=== PATIENT | male | born 1970 | race African-American/Black ===

== ENCOUNTER 2018-03-30 19:20 | Emergency (ER) | payer SELFPAY ==
--- NOTE | 2018-03-30 20:37 | EDPHYS ---
Physician Documentation [facility] Name: Emery Hernandez Age: 47 yrs Sex: Male : 1970 Arrival Date: 03/30/2018 Time: 19:25 Bed 30 Private MD: ED Physician Mayank Sloan HPI: 03/30 20:39 This 47 yrs old Black Male presents to ER via Ambulatory with complaints of SKIN kb IRRITATION. 20:39 The patient's rash thought to be caused by Eczema. The rash is located on the body kb diffusely. Onset: The symptoms/episode began/occurred 1.5 week(s) ago. Associated signs and symptoms: Pertinent positives: itching. Severity of symptoms: At their worst the symptoms were moderate in the emergency department the symptoms are unchanged. Treatment given at home:. The patient has experienced similar episodes in the past, chronically. The patient has not recently seen a physician. Pt states his eczema has been flaring up for a week and a half. States he normally has to get a steroid shot and a cream to get it back under control.. Historical: - Allergies: 19:57 Hydrocortisone; aj - Home Meds: 19:57 Naproxen Oral [Active]; aj - PMHx: 19:57 Back pain; eczema; aj - PSHx: 19:57 None; aj - Immunization history:: Adult Immunizations up to date. - Social history:: Smoking status: Patient uses tobacco products, smokes one-half pack cigarettes per day, Patient uses street drugs, marijuana. - Ebola Screening: : Patient negative for fever greater than or equal to 101.5 degrees Fahrenheit, and additional compatible Ebola Virus Disease symptoms Patient denies exposure to infectious person Patient denies travel to an Ebola-affected area in the 21 days before illness onset No symptoms or risks identified at this time. ROS: 20:39 Constitutional: Negative for fever, chills, and weight loss, Cardiovascular: Negative kb for chest pain, palpitations, and edema, Respiratory: Negative for shortness of breath, cough, wheezing, and pleuritic chest pain, Abdomen/GI: Negative for abdominal pain, nausea, vomiting, diarrhea, and constipation, Back: Negative for injury and pain, : Negative for injury, bleeding, discharge, and swelling, MS/Extremity: Negative for injury and deformity, Neuro: Negative for headache, weakness, numbness, tingling, and seizure. 20:39 Skin: Positive for rash, diffusely. Exam: 20:39 Constitutional: This is a well developed, well nourished patient who is awake, alert, kb and in no acute distress. Head/Face: Normocephalic, atraumatic. Neck: Trachea midline, no thyromegaly or masses palpated, and no cervical lymphadenopathy. Supple, full range of motion without nuchal rigidity, or vertebral point tenderness. No Meningismus. Chest/axilla: Normal chest wall appearance and motion. Nontender with no deformity. No lesions are appreciated. Cardiovascular: Regular rate and rhythm with a normal S1 and S2. No gallops, murmurs, or rubs. Normal PMI, no JVD. No pulse deficits. Respiratory: Lungs have equal breath sounds bilaterally, clear to auscultation and percussion. No rales, rhonchi or wheezes noted. No increased work of breathing, no retractions or nasal flaring. Abdomen/GI: Soft, non-tender, with normal bowel sounds. No distension or tympany. No guarding or rebound. No evidence of tenderness throughout. Back: No spinal tenderness. No costovertebral tenderness. Full range of motion. MS/ Extremity: Pulses equal, no cyanosis. Neurovascular intact. Full, normal range of motion. Neuro: Awake and alert, GCS 15, oriented to person, place, time, and situation. Cranial nerves II-XII grossly intact. Motor strength 5/5 in all extremities. Sensory grossly intact. Cerebellar exam normal. Normal gait. 20:39 Skin: consistent with eczema, and is diffusely located. Vital Signs: 19:57 BP 125 / 89; Pulse 75; Resp 18; Temp 99.5; Pulse Ox 98% on R/A; Weight 68.04 kg; Height aj 5 ft. 11 in. (180.34 cm); 20:42 BP 134 / 81; Pulse 78; Resp 18; Pulse Ox 100% on R/A; Pain 0/10; mg2 19:57 Body Mass Index 20.92 (68.04 kg, 180.34 cm) aj MDM: 20:30 Patient medically screened. kb 20:39 Data reviewed: vital signs, nurses notes. Data interpreted: Pulse oximetry: on room air kb is 98 %. Interpretation: normal. Counseling: I had a detailed discussion with the patient and/or guardian regarding: the historical points, exam findings, and any diagnostic results supporting the discharge/admit diagnosis, the need for outpatient follow up, a family practitioner, to return to the emergency department if symptoms worsen or persist or if there are any questions or concerns that arise at home. Administered Medications: 20:43 Drug: SOLU-Medrol 125 mg Route: IM; Site: left gluteus; la1 20:43 Follow up: Response: Medication administered at discharge. la1 Disposition: 03/30/18 20:36 Discharged to Home. Impression: Rash and other nonspecific skin eruption - eczema. - Condition is Stable. - Discharge Instructions: Eczema. - Prescriptions for Triamcinolone Acetonide 0.5 % Topical Cream - apply 1 application by TOPICAL route 2 times per day As needed; 1 tube. - Medication Reconciliation Form, Thank You Letter, Antibiotic Education, Prescription Opioid Use form. - Follow up: Emergency Department; When: As needed; Reason: Worsening of condition. Follow up: Private Physician; When: 2 - 3 days; Reason: Recheck today's complaints, Continuance of care, Re-evaluation by your physician. Addendum: 04/01/2018 08:15 Co-signature as Attending Physician, Mayank Sloan MD I agree with the assessment and w a plan of care. Signatures: Jacki Gueavra, OWEN-C COLLEGE ADMINISTRATOR-Tamia Turk RN RN aj Chico Hernandez RN RN la1 Mayank Sloan MD MD wa Sanchez Diaz RN RN mg2 Corrections: (The following items were deleted from the chart) 03/30 20:47 20:36 03/30/2018 20:36 Discharged to Home. Impression: Rash and other nonspecific skin mg2 eruption - eczema. Condition is Stable. Forms are Medication Reconciliation Form, Thank You Letter, Antibiotic Education, Prescription Opioid Use. Follow up: Emergency Department; When: As needed; Reason: Worsening of condition. Follow up: Private Physician; When: 2 - 3 days; Reason: Recheck today's complaints, Continuance of care, Re-evaluation by your physician. kb
--- NOTE | 2018-03-30 20:37 | ER ---
Nurse's Notes [facility] Name: Emery Hernandez Age: 47 yrs Sex: Male : 1970 Arrival Date: 03/30/2018 Time: 19:25 Bed 30 Private MD: Diagnosis: Rash and other nonspecific skin eruption-eczema Presentation: 03/30 19:55 Presenting complaint: Patient states: "My eczema has been flaring up for the last aj week." Rash to face and arms. Transition of care: patient was not received from another setting of care. Onset of symptoms was March 24, 2018. Risk Assessment: Do you want to hurt yourself or someone else? Patient reports no desire to harm self or others. Initial Sepsis Screen: Does the patient meet any 2 criteria? No. Patient's initial sepsis screen is negative. Does the patient have a suspected source of infection? No. Patient's initial sepsis screen is negative. Care prior to arrival: None. 19:55 Method Of Arrival: Ambulatory aj 19:55 Acuity: WANDER 5 aj Triage Assessment: 19:57 General: Appears in no apparent distress. uncomfortable, Behavior is calm, cooperative, aj appropriate for age. Pain: Denies pain. Neuro: Level of Consciousness is awake, alert, obeys commands, Oriented to person, place, time, situation, Appropriate for age. Respiratory: Airway is patent Respiratory effort is even, unlabored, Respiratory pattern is regular, symmetrical. Derm: Rash noted that is itchy, papular, on face, back, chest, abdomen, right arm, left arm, right leg and left leg Reports itching. Historical: - Allergies: 19:57 Hydrocortisone; aj - Home Meds: 19:57 Naproxen Oral [Active]; aj - PMHx: 19:57 Back pain; eczema; aj - PSHx: 19:57 None; aj - Immunization history:: Adult Immunizations up to date. - Social history:: Smoking status: Patient uses tobacco products, smokes one-half pack cigarettes per day, Patient uses street drugs, marijuana. - Ebola Screening: : Patient negative for fever greater than or equal to 101.5 degrees Fahrenheit, and additional compatible Ebola Virus Disease symptoms Patient denies exposure to infectious person Patient denies travel to an Ebola-affected area in the 21 days before illness onset No symptoms or risks identified at this time. Screenin:17 Abuse screen: Denies threats or abuse. Denies injuries from another. Nutritional mg2 screening: No deficits noted. Tuberculosis screening: No symptoms or risk factors identified. Fall Risk None identified. Assessment: 20:23 General: Appears in no apparent distress. comfortable, Behavior is calm, cooperative. mg2 Pain: Denies pain. Neuro: Level of Consciousness is awake, alert, obeys commands, Oriented to person, place, time, situation. Cardiovascular: Capillary refill < 3 seconds Patient's skin is warm and dry. Respiratory: Airway is patent Respiratory effort is even, unlabored, Respiratory pattern is regular. GI: No signs and/or symptoms were reported involving the gastrointestinal system. : No signs and/or symptoms were reported regarding the genitourinary system. EENT: No signs and/or symptoms were reported regarding the EENT system. Derm: Skin is intact, Skin is pink, warm \\T\\ dry. normal, Rash noted that is itchy, raised. Musculoskeletal: No signs and/or symptoms reported regarding the musculoskeletal system. Vital Signs: 19:57 BP 125 / 89; Pulse 75; Resp 18; Temp 99.5; Pulse Ox 98% on R/A; Weight 68.04 kg; Height aj 5 ft. 11 in. (180.34 cm); 20:42 BP 134 / 81; Pulse 78; Resp 18; Pulse Ox 100% on R/A; Pain 0/10; mg2 19:57 Body Mass Index 20.92 (68.04 kg, 180.34 cm) aj ED Course: 19:25 Patient arrived in ED. al2 19:56 Triage completed. aj 19:57 Arm band placed on left wrist. Patient placed in waiting room, Patient notified of wait aj time. 20:17 Sanchez Diaz, JAIRO is Primary Nurse. mg2 20:18 Patient has correct armband on for positive identification. mg2 20:30 Jacki Guevara FNP-C is PHCP. kb 20:30 Mayank Sloan MD is Attending Physician. kb 20:41 No provider procedures requiring assistance completed. Patient did not have IV access mg2 during this emergency room visit. Administered Medications: 20:43 Drug: SOLU-Medrol 125 mg Route: IM; Site: left gluteus; la1 20:43 Follow up: Response: Medication administered at discharge. la1 Outcome: 20:36 Discharge ordered by . kb 20:41 Discharged to home ambulatory. mg2 20:41 Condition: stable 20:41 Discharge instructions given to patient, family, Instructed on discharge instructions, follow up and referral plans. medication usage, Demonstrated understanding of instructions, follow-up care, medications, Prescriptions given X 1. 20:47 Patient left the ED. mg2 Signatures: Jacki Guevara, CUSTOMER MARKETING MANAGER-C CUSTOMER MARKETING MANAGER-Tamia Turk RN Chico Howard RN RN gail1 Shanda Valdovinos Michele RN RN mg2
[2018-03-30] MEDS ORDERED: METHYLPREDNISOLONE 125 MG INJ ONE (20:46)
== END 2018-03-30 20:47 | disposition home or self-care (01) ==
LOC: ER 19:20
DX: R21 Rash and other nonspecific skin eruption (principal); Z88.8 Allergy status to other drugs, medicaments and biological substances; F17.210 Nicotine dependence, cigarettes, uncomplicated
CPT/HCPCS: 96372; 99283; J2930

== ENCOUNTER 2018-06-13 16:49 | Emergency (ER) | payer SELFPAY ==
[2018-06-13] MEDS ORDERED: METHYLPREDNISOLONE 125 MG INJ ONE (18:53)
--- NOTE | 2018-06-13 18:53 | ER ---
Nurse's Notes [facility] Name: Emery Hernandez Age: 47 yrs Sex: Male : 1970 Arrival Date: 06/13/2018 Time: 16:53 Bed 12 Private MD: None, None Diagnosis: Rash and other nonspecific skin eruption;Acute upper respiratory infection, unspecified Presentation: 06/13 17:27 Presenting complaint: Patient states: "My eczema is acting up again. I'm having hot and aj1 cold flashes, I'm getting chills real bad. I think I'm getting a cold or the flu" Denies cough, congestion, fever, N/V/D. Transition of care: patient was not received from another setting of care. Onset of symptoms was June 13, 2018. Risk Assessment: Do you want to hurt yourself or someone else? Patient reports no desire to harm self or others. Initial Sepsis Screen: Does the patient meet any 2 criteria? No. Patient's initial sepsis screen is negative. Does the patient have a suspected source of infection? No. Patient's initial sepsis screen is negative. Care prior to arrival: None. 17:27 Method Of Arrival: Ambulatory aj1 17:27 Acuity: WANDER 4 aj1 Triage Assessment: 17:29 General: Appears in no apparent distress. comfortable, Behavior is calm, cooperative, aj1 appropriate for age. Pain:. Pain: Denies pain. Neuro: Level of Consciousness is awake, alert, obeys commands. Cardiovascular: Patient's skin is warm and dry. Respiratory: Airway is patent Respiratory effort is even, unlabored, Respiratory pattern is regular, symmetrical. Historical: - Allergies: 17:29 Hydrocortisone; aj1 - Home Meds: 17:29 None [Active]; aj1 - PMHx: 17:29 Back pain; eczema; aj1 - PSHx: 17:29 None; aj1 - Immunization history:: Flu vaccine is not up to date. - Social history:: Smoking status: Patient uses tobacco products, smokes one-half pack cigarettes per day. - Ebola Screening: : Patient denies travel to an Ebola-affected area in the 21 days before illness onset. Screenin:46 Abuse screen: Denies threats or abuse. Denies injuries from another. Nutritional ss screening: No deficits noted. Tuberculosis screening: No symptoms or risk factors identified. Never had TB. Fall Risk None identified. Assessment: 17:46 General: Appears in no apparent distress. comfortable, Behavior is calm, cooperative. ss Pain: Denies pain. Neuro: Level of Consciousness is awake, alert, obeys commands, Oriented to person, place, time, situation. Cardiovascular: Capillary refill < 3 seconds is brisk in bilateral fingers. Respiratory: Airway is patent Respiratory effort is even, unlabored. GI: No signs and/or symptoms were reported involving the gastrointestinal system. EENT: Nares are clear Oral mucosa is moist. Derm: Skin is intact, is healthy with good turgor, Skin is dry, Skin is pink, warm \\T\\ dry. normal. Musculoskeletal: Range of motion: intact in all extremities, Swelling absent. Vital Signs: 17:29 BP 114 / 79; Pulse 80; Resp 18; Temp 97.4; Pulse Ox 98% on R/A; Weight 68.04 kg (R); aj1 Height 5 ft. 11 in. (180.34 cm) (R); Pain 0/10; 17:29 Body Mass Index 20.92 (68.04 kg, 180.34 cm) aj ED Course: 16:53 Patient arrived in ED. mr 16:53 None, None is Private Physician. mr 17:29 Triage completed. aj1 17:29 Arm band placed on Patient placed in an exam room. aj1 17:38 Katie Jones, RN is Primary Nurse. ss 17:46 Patient has correct armband on for positive identification. Placed in gown. Bed in low ss position. Call light in reach. 17:46 Patient maintains SpO2 saturation greater than 95% on room air. 17:54 Karthik Rodríguez PA is PHCP. [facility] 17:54 Michael Vogt MD is Attending Physician. [facility] 18:57 No provider procedures requiring assistance completed. Patient did not have IV access ss during this emergency room visit. Administered Medications: 18:47 Drug: SOLU-Medrol 125 mg Route: IM; Site: left deltoid; 18:57 Follow up: Response: No adverse reaction ss Outcome: 18:52 Discharge ordered by . [facility] 18:57 Discharged to home ambulatory. 18:57 Condition: good 18:57 Discharge instructions given to patient, Instructed on discharge instructions, follow up and referral plans. Demonstrated understanding of instructions, follow-up care, medications, Prescriptions given X 1. 18:57 Patient left the ED. ss Signatures: Karin Faulkner, RN RN aj1 Karthik Rodríguez PA PA jmm Rivera, Mary mr Katie Jones, RN RN ss
--- NOTE | 2018-06-13 18:53 | EDPHYS ---
Physician Documentation [facility] Name: Emery Hernandez Age: 47 yrs Sex: Male : 1970 Arrival Date: 06/13/2018 Time: 16:53 Bed 12 Private MD: None, None ED Physician Michael Vogt HPI: 06/13 18:41 This 47 yrs old Black Male presents to ER via Ambulatory with complaints of Ezcema. [facility] 18:41 The patient's rash thought to be caused by Eczema. The rash is located on the body jmm diffusely. The rash can be described as eczematous. Onset: The symptoms/episode began/occurred gradually, 1 week(s) ago. This is a 47 year old male with a history of eczema that presents to the ED with eczema flare for 1 week. patient also complains of 3 days of congestion and chills. Patient denies shortness of breath, abdominal pain, vomiting. Patient states he currently has relief of cold like symptoms with OTC medications. . Historical: - Allergies: 17:29 Hydrocortisone; aj1 - Home Meds: 17:29 None [Active]; aj1 - PMHx: 17:29 Back pain; eczema; aj1 - PSHx: 17:29 None; aj1 - Immunization history:: Flu vaccine is not up to date. - Social history:: Smoking status: Patient uses tobacco products, smokes one-half pack cigarettes per day. - Ebola Screening: : Patient denies travel to an Ebola-affected area in the 21 days before illness onset. ROS: 18:41 Eyes: Negative for injury, pain, redness, and discharge. jmm 18:41 Neck: Negative for injury, pain, and swelling, Cardiovascular: Negative for chest pain, palpitations, and edema, Respiratory: Negative for shortness of breath, cough, wheezing, and pleuritic chest pain. 18:41 Abdomen/GI: Negative for abdominal pain, nausea, vomiting, diarrhea, and constipation. 18:41 Constitutional: Positive for chills. 18:41 ENT: Positive for sinus congestion. 18:41 Skin: Positive for rash. 18:41 All other systems are negative. Exam: 18:41 Constitutional: This is a well developed, well nourished patient who is awake, alert, jmm and in no acute distress. 18:41 Eyes: EOMI, no conjunctival erythema appreciated ENT: Moist Mucus Membranes Neck: Trachea midline, Supple Chest/axilla: Normal chest wall appearance and motion. Cardiovascular: Regular rate and rhythm. No edema appreciated 18:41 Head/face: eczematous rash noted to the face. 18:41 Respiratory: the patient does not display signs of respiratory distress, Respirations: normal, Breath sounds: are clear throughout. 18:41 Abdomen/GI: 18:41 Back: ROM is normal. 18:41 Musculoskeletal/extremity: ROM: intact in all extremities. 18:41 Skin: eczematous rash noted t the face. 18:41 Neuro: Orientation: is normal, Mentation: is normal, Memory: is normal. 18:41 Psych: Behavior/mood is pleasant, cooperative. Vital Signs: 17:29 BP 114 / 79; Pulse 80; Resp 18; Temp 97.4; Pulse Ox 98% on R/A; Weight 68.04 kg (R); aj1 Height 5 ft. 11 in. (180.34 cm) (R); Pain 0/10; 17:29 Body Mass Index 20.92 (68.04 kg, 180.34 cm) aj1 MDM: 18:11 Patient medically screened. [facility] 18:41 Data reviewed: vital signs, nurses notes. Data interpreted: Pulse oximetry: on room air jmm is 98 %. Interpretation: normal. Counseling: I had a detailed discussion with the patient and/or guardian regarding: the historical points, exam findings, and any diagnostic results supporting the discharge/admit diagnosis, the need for outpatient follow up, to return to the emergency department if symptoms worsen or persist or if there are any questions or concerns that arise at home. Refusal of service: The patient/guardian displays adequate decision making capability and despite a detailed discussion of alternatives, benefits, risks, and consequences refuses: all X-rays. ED course: Patient is alert and non toxic in appearance in the ED. Lungs CTA. Patient given return precautions. patient understood and agrees with the plan of care. . Administered Medications: 18:47 Drug: SOLU-Medrol 125 mg Route: IM; Site: left deltoid; ss 18:57 Follow up: Response: No adverse reaction ss Disposition: 06/13/18 18:52 Discharged to Home. Impression: Rash and other nonspecific skin eruption, Acute upper respiratory infection, unspecified. - Condition is Stable. - Discharge Instructions: Rash, Upper Respiratory Infection, Adult. - Prescriptions for Triamcinolone Acetonide 0.1 % Topical Ointment - apply 1 application by TOPICAL route every 12 hours As needed; 1 tube. - Medication Reconciliation Form, Thank You Letter, Antibiotic Education, Prescription Opioid Use form. - Follow up: Private Physician; When: 2 - 3 days; Reason: Recheck today's complaints, Continuance of care, Re-evaluation by your physician. Addendum: 06/18/2018 08:06 Co-signature as Attending Physician, Michael Vogt MD I agree with the assessment and c montgomery plan of care. Signatures: Karin Faulkner RN RN aj1 Michael Vogt MD MD cha Mickail, Joel, PA PA jmm Smirch, Shelby RN RN ss Corrections: (The following items were deleted from the chart) 06/13 18:57 18:52 06/13/2018 18:52 Discharged to Home. Impression: Rash and other nonspecific skin ss eruption; Acute upper respiratory infection, unspecified. Condition is Stable. Forms are Medication Reconciliation Form, Thank You Letter, Antibiotic Education, Prescription Opioid Use. Follow up: Private Physician; When: 2 - 3 days; Reason: Recheck today's complaints, Continuance of care, Re-evaluation by your physician. maria guadalupe
== END 2018-06-13 18:57 | disposition home or self-care (01) ==
LOC: ER 16:49
DX: J06.9 Acute upper respiratory infection, unspecified (principal); F17.210 Nicotine dependence, cigarettes, uncomplicated; Z88.8 Allergy status to other drugs, medicaments and biological substances
CPT/HCPCS: 96372; 99284; J2930

== ENCOUNTER 2018-07-05 18:19 | Emergency (ER) | payer SELFPAY ==
--- NOTE | 2018-07-05 19:35 | ER ---
Nurse's Notes [facility] Name: Emery Hernandez Age: 47 yrs Sex: Male : 1970 Arrival Date: 07/05/2018 Time: 18:22 Bed 13 Private MD: None, None Diagnosis: Eczema Presentation: 07/05 18:36 Presenting complaint: Patient states: my eczema on my face is acting up again, it hj started a week ago, my face started to swell again; been using the eczema cream but its not helping;. Transition of care: patient was not received from another setting of care. Onset of symptoms was July 05, 2018. Risk Assessment: Do you want to hurt yourself or someone else? Patient reports no desire to harm self or others. Initial Sepsis Screen: Does the patient meet any 2 criteria? No. Patient's initial sepsis screen is negative. Does the patient have a suspected source of infection? No. Patient's initial sepsis screen is negative. Care prior to arrival: None. 18:36 Method Of Arrival: Ambulatory 18:36 Acuity: WANDER 4 hj Triage Assessment: 18:38 General: Appears in no apparent distress. uncomfortable, Behavior is calm, cooperative, hj appropriate for age. Pain: Complains of pain in face Pain currently is 8 out of 10 on a pain scale. Historical: - Allergies: 18:37 Hydrocortisone; hj - Home Meds: 18:37 None [Active]; hj - PMHx: 18:37 Back pain; eczema; hj - PSHx: 18:37 None; hj - Immunization history:: Adult Immunizations up to date. - Social history:: Smoking status: Patient uses tobacco products, Patient uses alcohol. - Ebola Screening: : Patient negative for fever greater than or equal to 101.5 degrees Fahrenheit, and additional compatible Ebola Virus Disease symptoms Patient denies exposure to infectious person Patient denies travel to an Ebola-affected area in the 21 days before illness onset. Screenin:37 Abuse screen: Denies threats or abuse. Denies injuries from another. Nutritional hj screening: No deficits noted. Tuberculosis screening: No symptoms or risk factors identified. Fall Risk None identified. Assessment: 19:35 General: Appears in no apparent distress. Behavior is calm, cooperative, appropriate ea for age. Pain: Denies pain. Neuro: Level of Consciousness is awake, alert, obeys commands, Oriented to person, place, time, situation. Cardiovascular: Patient's skin is warm and dry. Respiratory: Airway is patent Respiratory effort is even, unlabored, Respiratory pattern is regular, symmetrical. Derm: Skin is dry, Skin is normal, Skin temperature is warm Rash noted that is itchy. 19:42 Reassessment: Patient and/or family updated on plan of care and expected duration. Pain ea level reassessed. Patient is alert, oriented x 3, equal unlabored respirations, skin warm/dry/pink. Discharge instructions given to patient, verbalized the understanding of instruction. Vital Signs: 18:38 BP 113 / 80; Pulse 88; Resp 18; Temp 99.2(O); Pulse Ox 98% on R/A; Weight 68.04 kg; hj Height 5 ft. 11 in. (180.34 cm); Pain 8/10; 18:38 Body Mass Index 20.92 (68.04 kg, 180.34 cm) ED Course: 18:22 Patient arrived in ED. mr 18:22 None, None is Private Physician. mr 18:37 Triage completed. hj 18:38 Arm band placed on right wrist. hj 18:38 Patient has correct armband on for positive identification. Bed in low position. Call light in reach. Side rails up X 1. 19:26 Vj Queen NP is PHCP. pm1 19:26 Hayder Sheppard MD is Attending Physician. pm1 19:41 Terri Negron RN is Primary Nurse. ea 19:42 No provider procedures requiring assistance completed. Patient did not have IV access ea during this emergency room visit. Administered Medications: No medications were administered Outcome: 19:34 Discharge ordered by . pm1 19:41 Discharged to home ambulatory. ea 19:41 Condition: good 19:41 Discharge instructions given to patient, Instructed on discharge instructions, follow up and referral plans. medication usage, Demonstrated understanding of instructions, follow-up care, medications, Prescriptions given X 1. 19:46 Patient left the ED. ea Signatures: Yessi Reed MuRoger RN RN Vj Queen NP HYDROLOGY PROFESSOR pm1 Terri Negron RN RN ea Corrections: (The following items were deleted from the chart) 18:40 18:38 Pulse 88bpm; Resp 18bpm; Pulse Ox 98% RA; Temp 99.2F Oral; 68.04 kg; Height 5 ft. hj 11 in.; BMI: 20.9; Pain 8/10; hj
--- NOTE | 2018-07-05 19:35 | EDPHYS ---
Physician Documentation [facility] Name: Emery Hernandez Age: 47 yrs Sex: Male : 1970 Arrival Date: 07/05/2018 Time: 18:22 Bed 13 Private MD: None, None ED Physician Hayder Sheppard HPI: 07/05 19:30 This 47 yrs old Black Male presents to ER via Ambulatory with complaints of Ezcema. pm1 19:30 The patient's rash thought to be caused by Eczema. The rash is located on the face and pm1 abdomen. The rash can be described as plaque-like, raised. Onset: The symptoms/episode began/occurred 1 week(s) ago. Associated signs and symptoms: Pertinent positives: itching, Pertinent negatives: burning sensation, difficulty breathing, fever, swelling of lips, swelling of throat, swelling of tongue, vomiting, wheezing. Severity of symptoms: in the emergency department the symptoms are worse. Treatment given at home: none. Ran out of triamcinolone which works for him. His last tube of triamcinolone was prescribed from this ER . The patient has experienced similar episodes in the past, chronically. The patient has not recently seen a physician. Historical: - Allergies: 18:37 Hydrocortisone; hj - Home Meds: 18:37 None [Active]; hj - PMHx: 18:37 Back pain; eczema; hj - PSHx: 18:37 None; hj - Immunization history:: Adult Immunizations up to date. - Social history:: Smoking status: Patient uses tobacco products, Patient uses alcohol. - Ebola Screening: : Patient negative for fever greater than or equal to 101.5 degrees Fahrenheit, and additional compatible Ebola Virus Disease symptoms Patient denies exposure to infectious person Patient denies travel to an Ebola-affected area in the 21 days before illness onset. ROS: 19:30 Constitutional: Negative for fever, chills, and weight loss, Eyes: Negative for injury, pm1 pain, redness, and discharge, ENT: Negative for injury, pain, and discharge, Neck: Negative for injury, pain, and swelling, Cardiovascular: Negative for chest pain, palpitations, and edema, Respiratory: Negative for shortness of breath, cough, wheezing, and pleuritic chest pain, Abdomen/GI: Negative for abdominal pain, nausea, vomiting, diarrhea, and constipation, Back: Negative for injury and pain, : Negative for injury, bleeding, discharge, and swelling, MS/Extremity: Negative for injury and deformity. 19:30 Skin: Positive for rash, of the abdomen and face. Exam: 19:30 Constitutional: This is a well developed, well nourished patient who is awake, alert, pm1 and in no acute distress. Head/Face: Normocephalic, atraumatic. Eyes: Pupils equal round and reactive to light, extra-ocular motions intact. Lids and lashes normal. Conjunctiva and sclera are non-icteric and not injected. Cornea within normal limits. Periorbital areas with no swelling, redness, or edema. ENT: Nares patent. No nasal discharge, no septal abnormalities noted. Tympanic membranes are normal and external auditory canals are clear. Oropharynx with no redness, swelling, or masses, exudates, or evidence of obstruction, uvula midline. Mucous membranes moist. Neck: Trachea midline, no thyromegaly or masses palpated, and no cervical lymphadenopathy. Supple, full range of motion without nuchal rigidity, or vertebral point tenderness. No Meningismus. Chest/axilla: Normal chest wall appearance and motion. Nontender with no deformity. No lesions are appreciated. Cardiovascular: Regular rate and rhythm with a normal S1 and S2. No gallops, murmurs, or rubs. Normal PMI, no JVD. No pulse deficits. Respiratory: Lungs have equal breath sounds bilaterally, clear to auscultation and percussion. No rales, rhonchi or wheezes noted. No increased work of breathing, no retractions or nasal flaring. Abdomen/GI: Soft, non-tender, with normal bowel sounds. No distension or tympany. No guarding or rebound. No evidence of tenderness throughout. Back: No spinal tenderness. No costovertebral tenderness. Full range of motion. 19:30 MS/ Extremity: Pulses equal, no cyanosis. Neurovascular intact. Full, normal range of motion. 19:30 Skin: Appearance: normal except for affected area, consistent with eczema, on the abdomen and face. 19:30 Neuro: Orientation: is normal, Motor: is normal, moves all fours. Vital Signs: 18:38 BP 113 / 80; Pulse 88; Resp 18; Temp 99.2(O); Pulse Ox 98% on R/A; Weight 68.04 kg; hj Height 5 ft. 11 in. (180.34 cm); Pain 8/10; 18:38 Body Mass Index 20.92 (68.04 kg, 180.34 cm) MDM: 19:26 Patient medically screened. pm1 19:33 Data reviewed: vital signs. Data interpreted: Pulse oximetry: on room air is 98 %. pm1 Interpretation: normal. 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 Administered Medications: No medications were administered Disposition: 07/06 04:25 Co-signature as Attending Physician, Hayder Sheppard MD I agree with the assessment and tw4 plan of care. Disposition: 07/05/18 19:34 Discharged to Home. Impression: Eczema. - Condition is Stable. - Discharge Instructions: Contact Dermatitis. - Prescriptions for Triamcinolone Acetonide 0.5 % Topical Cream - apply 1 application by TOPICAL route 2 times per day As needed; 30 gram. - Medication Reconciliation Form, Thank You Letter form. - Follow up: Emergency Department; When: As needed; Reason: Worsening of condition. Follow up: Private Physician; When: 2 - 3 days; Reason: Recheck today's complaints, Continuance of care, Re-evaluation by your physician. - Problem is new. - Symptoms have improved. Signatures: Roger Dobbins RN RN Vj Queen NP RESEARCH NEUROPSYCHOLOGIST pm1 Terri Negron RN RN ea Wadley, Terrence, MD MD tw4 Corrections: (The following items were deleted from the chart) 07/05 19:46 19:34 07/05/2018 19:34 Discharged to Home. Impression: Eczema. Condition is Stable. ea Forms are Medication Reconciliation Form, Thank You Letter, Antibiotic Education, Prescription Opioid Use. Follow up: Emergency Department; When: As needed; Reason: Worsening of condition. Follow up: Private Physician; When: 2 - 3 days; Reason: Recheck today's complaints, Continuance of care, Re-evaluation by your physician. Problem is new. Symptoms have improved. pm1
== END 2018-07-05 19:46 | disposition home or self-care (01) ==
LOC: ER 18:19
DX: L30.9 Dermatitis, unspecified (principal); Z72.0 Tobacco use; Z88.8 Allergy status to other drugs, medicaments and biological substances
CPT/HCPCS: 99282

== ENCOUNTER 2018-12-31 12:58 | Emergency (ER) | payer SELFPAY ==
--- NOTE | 2018-12-31 14:48 | ER ---
Nurse's Notes [facility] Name: Emery Hernandez Age: 48 yrs Sex: Male : 1970 Arrival Date: 12/31/2018 Time: 13:00 Bed 27 Private MD: None, None Diagnosis: Dermatitis, unspecified-eczema Presentation: 12/31 13:12 Presenting complaint: Patient states: Eczema break out on chest, arms and back. Care aj prior to arrival: None. 13:12 Method Of Arrival: Ambulatory aj 13:12 Acuity: WANDER 4 aj 13:31 Transition of care: patient was not received from another setting of care. Onset of ca1 symptoms was December 31, 2018. Risk Assessment: Do you want to hurt yourself or someone else? Patient reports no desire to harm self or others. Initial Sepsis Screen: Does the patient meet any 2 criteria? No. Patient's initial sepsis screen is negative. Does the patient have a suspected source of infection? No. Patient's initial sepsis screen is negative. Triage Assessment: 13:13 General: Appears in no apparent distress. comfortable, Behavior is calm, cooperative, aj appropriate for age. Pain: Denies pain. Neuro: Level of Consciousness is awake, alert, obeys commands, Oriented to person, place, time, situation, Appropriate for age. Respiratory: Airway is patent Respiratory effort is even, unlabored, Respiratory pattern is regular, symmetrical. Derm: Skin is intact, is healthy with good turgor, Skin is pink, warm \T\ dry. normal. Historical: - Allergies: 13:13 Hydrocortisone; aj - Home Meds: 13:32 None [Active]; ca1 - PMHx: 13:32 Back pain; eczema; ca1 - PSHx: 13:32 None; ca1 - Immunization history:: Adult Immunizations up to date. - Social history:: Smoking status: Patient uses tobacco products, smokes one-half pack cigarettes per day. - Ebola Screening: : Patient negative for fever greater than or equal to 101.5 degrees Fahrenheit, and additional compatible Ebola Virus Disease symptoms Patient denies exposure to infectious person Patient denies travel to an Ebola-affected area in the 21 days before illness onset. - Family history:: not pertinent. Screenin:27 Abuse screen: Denies threats or abuse. Denies injuries from another. Nutritional ca1 screening: No deficits noted. Tuberculosis screening: No symptoms or risk factors identified. Fall Risk None identified. Assessment: 13:27 General: Appears in no apparent distress. comfortable, Behavior is calm, cooperative, ca1 appropriate for age. Pain: Denies pain. Neuro: Level of Consciousness is awake, alert, obeys commands, Oriented to person, place, time, situation. Derm: Skin is intact, Skin is pink, warm \T\ dry. Rash noted that is itchy, on back, chest, abdomen, right arm and left arm. 14:30 Reassessment: Patient appears in no apparent distress at this time. Patient and/or ca1 family updated on plan of care and expected duration. Pain level reassessed. Patient is alert, oriented x 3, equal unlabored respirations, skin warm/dry/pink. 15:14 Reassessment: Patient appears in no apparent distress at this time. Patient is alert, ca1 oriented x 3, equal unlabored respirations, skin warm/dry/pink. Vital Signs: 13:13 BP 114 / 72; Pulse 60; Resp 18; Temp 98.0; Pulse Ox 99% on R/A; Weight 68.04 kg; Height aj 5 ft. 10 in. (177.80 cm); 13:27 BP 117 / 86; Pulse 52; Resp 17 S; Pulse Ox 99% on R/A; ca1 15:00 BP 135 / 85; Pulse 53; Resp 17 S; Temp 98(O); Pulse Ox 100% on R/A; ca1 13:13 Body Mass Index 21.52 (68.04 kg, 177.80 cm) ED Course: 13:00 Patient arrived in ED. tw3 13:00 None, None is Private Physician. tw3 13:13 Triage completed. aj 13:13 Arm band placed on right wrist. Patient placed in an exam room. aj 13:15 Michael Vogt MD is Attending Physician. dolly 13:23 Kala Carcamo RN is Primary Nurse. ca1 13:27 Patient has correct armband on for positive identification. Bed in low position. Call ca1 light in reach. Side rails up X 1. Pulse ox on. NIBP on. Warm blanket given. 13:27 No provider procedures requiring assistance completed. ca1 14:47 Montana Jones MD is Referral Physician. dolly 15:15 Patient did not have IV access during this emergency room visit. ca1 Administered Medications: 14:53 Drug: Decadron 10 mg Route: IM; Site: right deltoid; ca1 15:16 Follow up: Response: No adverse reaction ca1 14:53 Drug: Benadryl 25 mg Route: PO; ca1 15:16 Follow up: Response: No adverse reaction ca1 14:54 Drug: Pepcid 20 mg Route: PO; ca1 15:16 Follow up: Response: No adverse reaction ca1 Outcome: 14:47 Discharge ordered by MD. alberto 15:15 Discharged to home ambulatory. ca1 15:15 Condition: stable 15:15 Discharge instructions given to patient, Instructed on discharge instructions, follow up and referral plans. medication usage, Demonstrated understanding of instructions, follow-up care, medications, Prescriptions given X 4. 15:16 Patient left the ED. ca1 Signatures: Tamia Allen, RN RN Michael Britton MD MD cha Wade, Tia tw3 Kala Carcamo RN RN ca1
--- NOTE | 2018-12-31 14:48 | EDPHYS ---
Physician Documentation [facility] Name: Emery Hernandez Age: 48 yrs Sex: Male : 1970 Arrival Date: 12/31/2018 Time: 13:00 Bed 27 Private MD: None, None ED Physician Michael Vogt HPI: 12/31 14:43 This 48 yrs old Black Male presents to ER via Ambulatory with complaints of Rash. dolly 14:43 The patient's rash thought to be caused by Eczema. The rash is located on the body dolly diffusely. The rash can be described as erythematous, patchy, raised. Onset: The symptoms/episode began/occurred 3 week(s) ago. Associated signs and symptoms: Pertinent positives: itching, Pertinent negatives: fever. Severity of symptoms: At their worst the symptoms were mild moderate in the emergency department the symptoms are unchanged despite home interventions. Treatment given at home: Benadryl, oral steroids, OTC lotion/cream. The patient has not experienced similar symptoms in the past. Historical: - Allergies: 13:13 Hydrocortisone; aj - Home Meds: 13:32 None [Active]; ca1 - PMHx: 13:32 Back pain; eczema; ca1 - PSHx: 13:32 None; ca1 - Immunization history:: Adult Immunizations up to date. - Social history:: Smoking status: Patient uses tobacco products, smokes one-half pack cigarettes per day. - Ebola Screening: : Patient negative for fever greater than or equal to 101.5 degrees Fahrenheit, and additional compatible Ebola Virus Disease symptoms Patient denies exposure to infectious person Patient denies travel to an Ebola-affected area in the 21 days before illness onset. - Family history:: not pertinent. ROS: 14:43 Constitutional: Negative for fever, chills, and weight loss, Eyes: Negative for injury, dolly pain, redness, and discharge, ENT: Negative for injury, pain, and discharge, Neck: Negative for injury, pain, and swelling, Cardiovascular: Negative for chest pain, palpitations, and edema, Respiratory: Negative for shortness of breath, cough, wheezing, and pleuritic chest pain, Abdomen/GI: Negative for abdominal pain, nausea, vomiting, diarrhea, and constipation, Back: Negative for injury and pain, : Negative for injury, bleeding, discharge, and swelling, MS/Extremity: Negative for injury and deformity, Neuro: Negative for headache, weakness, numbness, tingling, and seizure, Psych: Negative for depression, anxiety, suicide ideation, homicidal ideation, and hallucinations, Allergy/Immunology: Negative for hives, rash, and allergies, Endocrine: Negative for neck swelling, polydipsia, polyuria, polyphagia, and marked weight changes, Hematologic/Lymphatic: Negative for swollen nodes, abnormal bleeding, and unusual bruising. 14:43 Skin: Positive for rash, diffusely. Exam: 14:43 Constitutional: This is a well developed, well nourished patient who is awake, alert, dolly and in no acute distress. Head/Face: Normocephalic, atraumatic. Eyes: Pupils equal round and reactive to light, extra-ocular motions intact. Lids and lashes normal. Conjunctiva and sclera are non-icteric and not injected. Cornea within normal limits. Periorbital areas with no swelling, redness, or edema. ENT: Nares patent. No nasal discharge, no septal abnormalities noted. Tympanic membranes are normal and external auditory canals are clear. Oropharynx with no redness, swelling, or masses, exudates, or evidence of obstruction, uvula midline. Mucous membranes moist. Neck: Trachea midline, no thyromegaly or masses palpated, and no cervical lymphadenopathy. Supple, full range of motion without nuchal rigidity, or vertebral point tenderness. No Meningismus. Chest/axilla: Normal chest wall appearance and motion. Nontender with no deformity. No lesions are appreciated. Cardiovascular: Regular rate and rhythm with a normal S1 and S2. No gallops, murmurs, or rubs. Normal PMI, no JVD. No pulse deficits. Respiratory: Lungs have equal breath sounds bilaterally, clear to auscultation and percussion. No rales, rhonchi or wheezes noted. No increased work of breathing, no retractions or nasal flaring. Abdomen/GI: Soft, non-tender, with normal bowel sounds. No distension or tympany. No guarding or rebound. No evidence of tenderness throughout. Back: No spinal tenderness. No costovertebral tenderness. Full range of motion. Male : Normal genitalia with no discharge or lesions. MS/ Extremity: Pulses equal, no cyanosis. Neurovascular intact. Full, normal range of motion. Neuro: Awake and alert, GCS 15, oriented to person, place, time, and situation. Cranial nerves II-XII grossly intact. Motor strength 5/5 in all extremities. Sensory grossly intact. Cerebellar exam normal. Normal gait. Psych: Awake, alert, with orientation to person, place and time. Behavior, mood, and affect are within normal limits. 14:43 Skin: rash a moderate rash is noted, rash can be described as erythematous, papular, raised, eczema, and is diffusely located. Vital Signs: 13:13 BP 114 / 72; Pulse 60; Resp 18; Temp 98.0; Pulse Ox 99% on R/A; Weight 68.04 kg; Height aj 5 ft. 10 in. (177.80 cm); 13:27 BP 117 / 86; Pulse 52; Resp 17 S; Pulse Ox 99% on R/A; ca1 15:00 BP 135 / 85; Pulse 53; Resp 17 S; Temp 98(O); Pulse Ox 100% on R/A; ca1 13:13 Body Mass Index 21.52 (68.04 kg, 177.80 cm) MDM: 13:15 Patient medically screened. [facility] 14:46 Data reviewed: vital signs, nurses notes. dolly Administered Medications: 14:53 Drug: Decadron 10 mg Route: IM; Site: right deltoid; ca1 15:16 Follow up: Response: No adverse reaction ca1 14:53 Drug: Benadryl 25 mg Route: PO; ca1 15:16 Follow up: Response: No adverse reaction ca1 14:54 Drug: Pepcid 20 mg Route: PO; ca1 15:16 Follow up: Response: No adverse reaction ca1 Disposition: 12/31/18 14:47 Discharged to Home. Impression: Dermatitis, unspecified - eczema. - Condition is Stable. - Discharge Instructions: Eczema, Rash, Rash, [id number]. - Prescriptions for Benadryl 25 mg Oral Capsule - take 1 capsule by ORAL route every 6 hours As needed; 30 tablet. Pepcid 20 mg Oral Tablet - take 1 tablet by ORAL route every 12 hours for 10 days; 20 tablet. Dexamethasone 0.5 mg Oral Tablet - take 2 tablet by ORAL route 2 times per day; 20 tablet. Triamcinolone Acetonide 0.5 % Topical Cream - apply 1 application by TOPICAL route 2 times per day As needed; 60 gram. - Medication Reconciliation Form, Thank You Letter, Antibiotic Education, Prescription Opioid Use form. - Follow up: Private Physician; When: 2 - 3 days; Reason: Recheck today's complaints, Continuance of care, Re-evaluation by your physician. Follow up: Montana Jones MD; When: 2 - 3 days; Reason: Recheck today's complaints, Re-evaluation by your physician. - Problem is new. - Symptoms have improved. Signatures: Tamia Allen RN RN Michael Britton MD MD cha Acob, Cheryl RN RN ca1 Corrections: (The following items were deleted from the chart) 15:16 14:47 12/31/2018 14:47 Discharged to Home. Impression: Dermatitis, unspecified - ca1 eczema. Condition is Stable. Forms are Medication Reconciliation Form, Thank You Letter, Antibiotic Education, Prescription Opioid Use. Follow up: Private Physician; When: 2 - 3 days; Reason: Recheck today's complaints, Continuance of care, Re-evaluation by your physician. Follow up: Montana Jones; When: 2 - 3 days; Reason: Recheck today's complaints, Re-evaluation by your physician. Problem is new. Symptoms have improved. dolly
[2018-12-31] MEDS ORDERED: DIPHENHYDRAMINE 25 MG TAB/CAP ONE (15:05)
[2018-12-31] MEDS ORDERED: DEXAMETHASONE 10 MG/ML VIAL ONE (15:05)
[2018-12-31] MEDS ORDERED: FAMOTIDINE 20 MG TAB ONE (15:06)
== END 2018-12-31 15:16 | disposition home or self-care (01) ==
LOC: ER 12:58
DX: L30.9 Dermatitis, unspecified (principal); F17.210 Nicotine dependence, cigarettes, uncomplicated; Z88.8 Allergy status to other drugs, medicaments and biological substances
CPT/HCPCS: 96372; 99283; J1100

== ENCOUNTER 2019-01-19 12:45 | Emergency (ER) | payer SELFPAY ==
[2019-01-19 14:03] LABS: Absolute Lymphocytes (CBC) 1.5 K/uL (0.7-4.9); Basophils % 1.1 % (0-1.3); Eosinophils % 8.2 % (0-4.4); Hematocrit 44.4 % (39.6-49.0); MPV 8.3 fL (7.6-11.3); Monocytes % 8.4 % (3.3-12.3); RBC Red Blood Cell Count 4.86 M/uL (4.33-5.43)
[2019-01-19 14:50] LABS: ALT/SGPT 32 U/L (12-78); AST/SGOT 31 U/L (15-37); Albumin 3.7 g/dL (3.4-5.0); Alkaline Phosphatase 134 U/L (45-117); BUN Blood Urea Nitrogen 16 mg/dL (7-18); Bicarbonate 27 mmol/L (21-32); Bilirubin Total 0.4 mg/dL (0.2-1.0); Glucose Level 88 mg/dL (74-106); Potassium 4.2 mmol/L (3.5-5.1); Protein, Total 8.1 g/dL (6.4-8.2); Sodium Level 141 mmol/L (136-145)
--- NOTE | 2019-01-19 15:30 | ER ---
Nurse's Notes [facility] Name: Emery Hernandez Age: 48 yrs Sex: Male : 1970 Arrival Date: 01/19/2019 Time: 12:46 Bed 7 Private MD: Diagnosis: Follicular disorder, unspecified;Strain of muscle, fascia and tendon of lower back Presentation: 01/19 12:51 Presenting complaint: Patient states: "My back has been killing me and I have these aj1 spots that are popping up on my body" Patient has multiple abscess to his right arm, right axilla, left leg, and back. Reports drainage from sites, denies fever. Transition of care: patient was not received from another setting of care. Onset of symptoms was January 02, 2018. Risk Assessment: Do you want to hurt yourself or someone else? Patient reports no desire to harm self or others. Initial Sepsis Screen: Does the patient meet any 2 criteria? No. Patient's initial sepsis screen is negative. Does the patient have a suspected source of infection? Yes: Skin breakdown/wound. Care prior to arrival: None. 12:51 Method Of Arrival: Ambulatory aj 12:51 Acuity: WANDER 4 aj1 Triage Assessment: 12:54 General: Appears in no apparent distress. comfortable, Behavior is calm, cooperative, aj1 appropriate for age. Pain: Complains of pain in back Pain currently is 10 out of 10 on a pain scale. Neuro: Level of Consciousness is awake, alert, obeys commands. Cardiovascular: Patient's skin is warm and dry. Respiratory: Airway is patent Respiratory effort is even, unlabored, Respiratory pattern is regular, symmetrical. Musculoskeletal: Range of motion: intact in all extremities. Historical: - Allergies: 12:54 Hydrocortisone; aj1 - Home Meds: 12:54 Decadron Oral [Active]; Bactrim DS Oral [Active]; aj1 - PMHx: 12:54 Back pain; eczema; aj1 - Immunization history:: Flu vaccine is not up to date. - Social history:: Smoking status: Patient uses tobacco products, 3-4 cigarettes per day. - Ebola Screening: : Patient denies travel to an Ebola-affected area in the 21 days before illness onset. Screenin:21 Abuse screen: Denies threats or abuse. Denies injuries from another. Nutritional sv screening: No deficits noted. Tuberculosis screening: No symptoms or risk factors identified. Fall Risk None identified. Assessment: 13:35 General: Appears in no apparent distress. uncomfortable, slender, Behavior is calm, sv cooperative, appropriate for age. Pain: Complains of pain in back Pain currently is 10 out of 10 on a pain scale. Neuro: Level of Consciousness is awake, alert, obeys commands, Oriented to person, place, time, situation, Moves all extremities. Full function Gait is steady, Speech is normal. Respiratory: Airway is patent Respiratory effort is even, unlabored, Respiratory pattern is regular, symmetrical. Derm: Skin is normal, Abscess located on back, right arm and left leg. Musculoskeletal: Range of motion: intact in all extremities. 15:43 Reassessment: Patient appears in no apparent distress at this time. No changes from sv previously documented assessment. Patient and/or family updated on plan of care and expected duration. Pain level reassessed. Patient is alert, oriented x 3, equal unlabored respirations, skin warm/dry/pink. Vital Signs: 12:54 BP 127 / 78; Pulse 79; Resp 16; Temp 98.0; Pulse Ox 99% on R/A; Weight 67.13 kg (R); aj1 Height 5 ft. 10 in. (177.80 cm) (R); Pain 10/10; 15:43 BP 122 / 80; Pulse 77; Resp 16; Pulse Ox 99% ; sv 12:54 Body Mass Index 21.24 (67.13 kg, 177.80 cm) aj1 ED Course: 12:46 Patient arrived in ED. as 12:53 Triage completed. aj1 12:54 Arm band placed on Patient placed in an exam room. aj1 13:15 Karthik Rodríguez PA is PHCP. [facility] 13:15 David Aponte MD is Attending Physician. [facility] 13:21 Kassandra Valdez, JAIRO is Primary Nurse. sv 13:21 Patient has correct armband on for positive identification. Bed in low position. Door sv closed. Head of bed elevated. 13:37 Initial lab(s) drawn, by me, sent to lab. Inserted saline lock: 20 gauge in right sv forearm, using aseptic technique. Blood collected. Flushed right forearm with 5 ml normal saline. 13:42 Awaiting lab results. sv 14:44 ED physician to see patient. sv 14:59 Awaiting disposition, Awaiting re-evaluation by ER provider. sv 15:43 No provider procedures requiring assistance completed. IV discontinued, intact, sv bleeding controlled, No redness/swelling at site. Pressure dressing applied. Administered Medications: 15:25 Drug: TORadol 30 mg Route: IVP; Site: right forearm; sv 15:42 Follow up: Response: No adverse reaction sv 15:28 CANCELLED (Physician Discretion): Ketorolac 30 mg IM once sv Outcome: 15:28 Discharge ordered by . maria guadalupe 15:43 Discharged to home ambulatory. sv 15:43 Condition: stable 15:43 Discharge instructions given to patient, Instructed on discharge instructions, follow up and referral plans. medication usage, Demonstrated understanding of instructions, follow-up care, medications, Prescriptions given X 2. 15:44 Patient left the ED. sv Signatures: Karin Faulkner RN RN aj1 Kassandra Valdez RN RN sv Karthik Rodríguez PA PA jmm Martinez, Amelia as Corrections: (The following items were deleted from the chart) 13:41 13:35 Derm: Skin is normal, Abscess located on right arm and left arm sv sv
--- NOTE | 2019-01-19 15:30 | EDPHYS ---
Physician Documentation [facility] Name: Emery Hernandez Age: 48 yrs Sex: Male : 1970 Arrival Date: 01/19/2019 Time: 12:46 Bed 7 Private MD: ED Physician David Aponte HPI: 01/19 12:51 This 48 yrs old Black Male presents to ER via Ambulatory with complaints of Back Pain, jmm Skin Problem. 12:51 The patient presents with pain that is acute. Onset: The symptoms/episode jmm began/occurred gradually. The pain does not radiate. Associated signs and symptoms: Pertinent negatives: fever, incontinence, numbness, tingling, urinary retention, weakness. This is a 48 year old male with a history of eczema, chronic back pain presents to the the ED with complaints of lower back pain and multiple bumps to his body. Patient states he recently began dexamethasone for an eczema flare. Over the past week the patient developed worsening back pain. Patient has had similar episodes before. Patient states having chronic back pain since an accident in 2012. 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 Patient denies fever. . Historical: - Allergies: 12:54 Hydrocortisone; aj1 - Home Meds: 12:54 Decadron Oral [Active]; Bactrim DS Oral [Active]; aj1 - PMHx: 12:54 Back pain; eczema; aj1 - Immunization history:: Flu vaccine is not up to date. - Social history:: Smoking status: Patient uses tobacco products, 3-4 cigarettes per day. - Ebola Screening: : Patient denies travel to an Ebola-affected area in the 21 days before illness onset. ROS: 12:51 Constitutional: Negative for fever, chills, and weight loss, Eyes: Negative for injury, jmm pain, redness, and discharge, Cardiovascular: Negative for chest pain, palpitations, and edema, Respiratory: Negative for shortness of breath, cough, wheezing, and pleuritic chest pain. 12:51 Back: Positive for pain with movement. jmm 12:51 Skin: Positive for abscess. 12:51 All other systems are negative. Exam: 12:51 Head/Face: atraumatic. Eyes: EOMI, no conjunctival erythema appreciated ENT: Moist jmm Mucus Membranes Neck: Trachea midline, Supple Chest/axilla: Normal chest wall appearance and motion. Cardiovascular: Regular rate and rhythm. No edema appreciated Respiratory: Normal respirations, no respiratory distress appreciated Abdomen/GI: Non distended, soft 12:51 Constitutional: The patient appears in no acute distress, alert, awake. 12:51 Back: no midline tenderness, tenderness on palpation of the paraspinal region. 12:51 Skin: multiple non fluctuant abscesses noted to the arms, neck, no surrounding erythema is appreciated. 12:51 Neuro: Orientation: is normal, Mentation: is normal, Memory: is normal, Gait: is steady, bilateral extensor hallucis intact. 12:51 Psych: Behavior/mood is pleasant, cooperative. Vital Signs: 12:54 BP 127 / 78; Pulse 79; Resp 16; Temp 98.0; Pulse Ox 99% on R/A; Weight 67.13 kg (R); aj1 Height 5 ft. 10 in. (177.80 cm) (R); Pain 10/10; 15:43 BP 122 / 80; Pulse 77; Resp 16; Pulse Ox 99% ; sv 12:54 Body Mass Index 21.24 (67.13 kg, 177.80 cm) aj1 MDM: 13:25 Patient medically screened. [facility] 15:27 Data reviewed: vital signs, nurses notes. Counseling: I had a detailed discussion with [facility] the patient and/or guardian regarding: the historical points, exam findings, and any diagnostic results supporting the discharge/admit diagnosis, lab results, the need for outpatient follow up, to return to the emergency department if symptoms worsen or persist or if there are any questions or concerns that arise at home. 16:12 ED course: Patient is alert and non toxic in appearance in the ED. No midline [facility] tenderness. No symptoms concerning for cord compression. Patient is able to ambulate without difficulty. . 01/19 13: Order name: CBC with Diff; Complete Time: 14:13 [facility] 01/19 13:29 Order name: CMP; Complete Time: 15:02 [facility] 01/19 13: Order name: Saline Lock; Complete Time: 13:39 [facility] 01/19 14:03 Order name: Labs - recollect needed; Complete Time: 14:19 eb Administered Medications: 15:25 Drug: TORadol 30 mg Route: IVP; Site: right forearm; sv 15:42 Follow up: Response: No adverse reaction sv 15:28 CANCELLED (Physician Discretion): Ketorolac 30 mg IM once sv Disposition: 16:53 Co-signature as Attending Physician, David Aponte MD. rn Disposition: 01/19/19 15:28 Discharged to Home. Impression: Follicular disorder, unspecified, Strain of muscle, fascia and tendon of lower back. - Condition is Stable. - Discharge Instructions: Back Pain, Adult, Folliculitis. - Prescriptions for Bactrim DS 800- 160 mg Oral Tablet - take 1 tablet by ORAL route every 12 hours for 10 days; 20 tablet. orphenadrine citrate 100 mg Oral Tablet Sustained Release - take 1 tablet by ORAL route 2 times per day As needed; 20 tablet. - Medication Reconciliation Form, Thank You Letter, Antibiotic Education, Prescription Opioid Use form. - Follow up: Private Physician; When: 2 - 3 days; Reason: Recheck today's complaints, Continuance of care, Re-evaluation by your physician. Signatures: Dispatcher [employer] EDKarin Chen RN RN ajKassandra Cullen RN RN sv Mickail, Joel, PA PA [facility] David Aponte MD MD rn Botello, Elizabeth eb Corrections: (The following items were deleted from the chart) 15:28 15:10 Ketorolac 30 mg IM once ordered. [facility] 15:28 15:28 Ketorolac 30 mg IM once ordered. [facility] 15:44 15:28 01/19/2019 15:28 Discharged to Home. Impression: Follicular disorder, sv unspecified; Strain of muscle, fascia and tendon of lower back. Condition is Stable. Forms are Medication Reconciliation Form, Thank You Letter, Antibiotic Education, Prescription Opioid Use. Follow up: Private Physician; When: 2 - 3 days; Reason: Recheck today's complaints, Continuance of care, Re-evaluation by your physician. [facility]
[2019-01-19] MEDS ORDERED: KETOROLAC 30 MG/ML INJ ONE (15:31)
== END 2019-01-19 15:44 | disposition home or self-care (01) ==
LOC: ER 12:45
DX: S39.012A Strain of muscle, fascia and tendon of lower back, initial encounter (principal); L73.9 Follicular disorder, unspecified; Z72.0 Tobacco use; Z88.8 Allergy status to other drugs, medicaments and biological substances
CPT/HCPCS: 36415; 80053; 85025; 96374; 99284

== ENCOUNTER 2019-04-21 06:25 | Emergency (ER) | payer SELFPAY ==
--- NOTE | 2019-04-21 06:46 | ER ---
Nurse's Notes [facility] Name: Emery Hernandez Age: 48 yrs Sex: Male : 1970 Arrival Date: 04/21/2019 Time: 06:28 Bed 15 Private MD: Diagnosis: Rash and other nonspecific skin eruption;Low back pain Presentation: 04/21 06:37 Presenting complaint: Patient states: eczema flare up for past several days. Transition aa1 of care: patient was not received from another setting of care. Onset of symptoms was April 17, 2019. Risk Assessment: Do you want to hurt yourself or someone else? Patient reports no desire to harm self or others. Initial Sepsis Screen: Does the patient meet any 2 criteria? No. Patient's initial sepsis screen is negative. Does the patient have a suspected source of infection? No. Patient's initial sepsis screen is negative. Care prior to arrival: None. 06:37 Method Of Arrival: Ambulatory aa1 06:37 Acuity: WANDER 4 aa1 Triage Assessment: 06:40 General: Appears in no apparent distress. comfortable, Behavior is calm, cooperative, aa1 appropriate for age. Historical: - Allergies: 06:40 Hydrocortisone; aa1 - Home Meds: 06:40 None [Active]; aa1 - PMHx: 06:40 Back pain; eczema; aa1 - PSHx: 06:40 None; aa1 - Immunization history:: Flu vaccine is not up to date. - Social history:: Smoking status: Patient uses tobacco products, 1/4 pack/day. - Ebola Screening: : No symptoms or risks identified at this time. Screenin:50 Abuse screen: Denies threats or abuse. Nutritional screening: No deficits noted. ea Tuberculosis screening: No symptoms or risk factors identified. Fall Risk None identified. Assessment: 06:50 General: Appears in no apparent distress. Behavior is calm, cooperative, appropriate ea for age. Pain: Complains of pain in back. Neuro: Level of Consciousness is awake, alert, obeys commands, Oriented to person, place, time, situation. Cardiovascular: Patient's skin is warm and dry. Respiratory: Airway is patent Respiratory effort is even, unlabored, Respiratory pattern is regular, symmetrical. 06:50 Derm: Skin is pink, warm \T\ dry. ea 07:00 Reassessment: Patient and/or family updated on plan of care and expected duration. Pain ea level reassessed. Patient is alert, oriented x 3, equal unlabored respirations, skin warm/dry/pink. Discharge instruction given to patient, verbalized the understanding of instruction. Pt left ED ambulatory accompanied by family. Pt tolerating well. Vital Signs: 06:40 BP 118 / 87; Pulse 62; Resp 16; Temp 97.8; Pulse Ox 97% on R/A; Weight 68.04 kg; Height aa1 5 ft. 10 in. (177.80 cm); Pain 7/10; 06:40 Body Mass Index 21.52 (68.04 kg, 177.80 cm) aa1 ED Course: 06:28 Patient arrived in ED. ds1 06:32 [facility]j Queen [facility]. pm1 06:32 Derrick Azar MD is Attending Physician. pm1 06:39 Triage completed. aa1 06:40 Arm band placed on right wrist. aa1 06:50 Patient has correct armband on for positive identification. Bed in low position. Call ea light in reach. 06:50 No provider procedures requiring assistance completed. Patient did not have IV access ea during this emergency room visit. Administered Medications: 06:55 Drug: Decadron 10 mg Route: IM; Site: right deltoid; ea 07:03 Follow up: Response: Medication administered at discharge. ea Outcome: 06:45 Discharge ordered by . pm1 07:02 Discharged to home ambulatory. ea 07:02 Condition: good 07:02 Discharge instructions given to patient, Instructed on discharge instructions, follow up and referral plans. medication usage, Demonstrated understanding of instructions, follow-up care, medications, Prescriptions given X 2. 07:03 Patient left the ED. ea Signatures: Stacy Gaona RN RN aa1 Em De Leon ds1 Vj Queen NP RISK ASSESSMENT CONSULTANT pm1 Terri Negron RN RN ea
--- NOTE | 2019-04-21 06:47 | EDPHYS ---
Physician Documentation [facility] Name: Emery Hernandez Age: 48 yrs Sex: Male : 1970 Arrival Date: 04/21/2019 Time: 06:28 Bed 15 Private MD: ED Physician Derrick Azar HPI: 04/21 06:44 This 48 yrs old Black Male presents to ER via Ambulatory with complaints of Skin pm1 Problem. 06:44 The patient's rash thought to be caused by Eczema. The rash is located on the chest, pm1 pelvis and right arm. The rash can be described as papular, raised. Onset: The symptoms/episode began/occurred 3 day(s) ago. Associated signs and symptoms: Pertinent positives: itching, Pertinent negatives: burning sensation, difficulty breathing, fever, nausea, swelling of lips, swelling of throat, swelling of tongue, vomiting, wheezing. Severity of symptoms: in the emergency department the symptoms are worse Pain is currently a 0 / 10. Treatment given at home: None but typically takes triamcinolone cream. The patient has experienced similar episodes in the past, chronically. The patient has not recently seen a physician. Patient feels that it's his eczema that is starting to appear so he likes to get ahead of it. Patient does not like to take any steroids. In the past triamcinolone has worked for his rash. Patient is also complaining of chronic back pain. It has bothered him for many years. 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 Historical: - Allergies: 06:40 Hydrocortisone; aa1 - Home Meds: 06:40 None [Active]; aa1 - PMHx: 06:40 Back pain; eczema; aa1 - PSHx: 06:40 None; aa1 - Immunization history:: Flu vaccine is not up to date. - Social history:: Smoking status: Patient uses tobacco products, 1/4 pack/day. - Ebola Screening: : No symptoms or risks identified at this time. ROS: 06:44 Constitutional: Negative for fever, chills, and weight loss, Eyes: Negative for injury, pm1 pain, redness, and discharge, ENT: Negative for injury, pain, and discharge, Neck: Negative for injury, pain, and swelling, Cardiovascular: Negative for chest pain, palpitations, and edema, Respiratory: Negative for shortness of breath, cough, wheezing, and pleuritic chest pain, Abdomen/GI: Negative for abdominal pain, nausea, vomiting, diarrhea, and constipation. 06:44 : Negative for injury, bleeding, discharge, and swelling, MS/Extremity: Negative for injury and deformity. 06:44 Back: Positive for of the low back area, pain, Negative for injury or acute deformity, decreased range of motion. 06:44 Skin: Positive for rash, of the right arm and chest and groin. Exam: 06:44 Constitutional: This is a well developed, well nourished patient who is awake, alert, pm1 and in no acute distress. Head/Face: Normocephalic, atraumatic. Neck: Trachea midline, no thyromegaly or masses palpated, and no cervical lymphadenopathy. Supple, full range of motion without nuchal rigidity, or vertebral point tenderness. No Meningismus. Chest/axilla: Normal chest wall appearance and motion. Nontender with no deformity. No lesions are appreciated. Cardiovascular: Regular rate and rhythm with a normal S1 and S2. No gallops, murmurs, or rubs. Normal PMI, no JVD. No pulse deficits. Respiratory: Lungs have equal breath sounds bilaterally, clear to auscultation and percussion. No rales, rhonchi or wheezes noted. No increased work of breathing, no retractions or nasal flaring. Abdomen/GI: Soft, non-tender, with normal bowel sounds. No distension or tympany. No guarding or rebound. No evidence of tenderness throughout. 06:44 MS/ Extremity: Pulses equal, no cyanosis. Neurovascular intact. Full, normal range of motion. 06:44 Back: normal spinal alignment noted, vertebral tenderness, is not appreciated, muscle spasm, is appreciated in the left low back and right low back. 06:44 Skin: Appearance: normal except for affected area, consistent with eczema, on the groin and right arm and chest. 06:44 Neuro: Orientation: is normal, Motor: is normal, moves all fours, Sensation: is normal, no obvious gross deficits, Gait: is steady, at a normal pace, without difficulty. Vital Signs: 06:40 BP 118 / 87; Pulse 62; Resp 16; Temp 97.8; Pulse Ox 97% on R/A; Weight 68.04 kg; Height aa1 5 ft. 10 in. (177.80 cm); Pain 7/10; 06:40 Body Mass Index 21.52 (68.04 kg, 177.80 cm) aa1 MDM: 06:32 Patient medically screened. pm1 06:44 Data reviewed: vital signs. Data interpreted: Pulse oximetry: on room air is 97 %. pm1 Interpretation: normal. Counseling: I had a detailed discussion with the patient and/or guardian regarding: the historical points, exam findings, and any diagnostic results supporting the discharge/admit diagnosis, the need for outpatient follow up, a family practitioner, follow up on chronic back pain and long-term management of rash, to return to the emergency department if symptoms worsen or persist or if there are any questions or concerns that arise at home. Administered Medications: 06:55 Drug: Decadron 10 mg Route: IM; Site: right deltoid; ea 07:03 Follow up: Response: Medication administered at discharge. ea Disposition: 04/21/19 06:45 Discharged to Home. Impression: Rash and other nonspecific skin eruption, Low back pain. - Condition is Stable. - Discharge Instructions: Back Pain, Adult, Eczema, Rash. - Prescriptions for Triamcinolone Acetonide 0.1 % Topical Ointment - apply 1 application by TOPICAL route every 12 hours As needed; 60 gram. Cyclobenzaprine 10 mg Oral Tablet - take 1 tablet by ORAL route every 8 hours As needed; 30 tablet. - Medication Reconciliation Form, Thank You Letter, Antibiotic Education, Prescription Opioid Use form. - Follow up: Emergency Department; When: As needed; Reason: Worsening of condition. Follow up: Private Physician; When: 2 - 3 days; Reason: Recheck today's complaints, Continuance of care, Re-evaluation by your physician. - Problem is new. - Symptoms have improved. Addendum: 04/23/2019 15:01 Co-signature as Attending Physician, Derrick Azar MD. g s Signatures: Stacy Gaona RN RN aa1 Vj Queen NP [employer]GRAMM[employer] LOGIC [employer]ER [employer]SEMBLER pm1 Terri Negron RN RN ea Starr, Gregory, MD MD Corrections: (The following items were deleted from the chart) 04/21 07:03 06:45 04/21/2019 06:45 Discharged to Home. Impression: Rash and other nonspecific skin ea eruption; Low back pain. Condition is Stable. Forms are Medication Reconciliation Form, Thank You Letter, Antibiotic Education, Prescription Opioid Use. Follow up: Emergency Department; When: As needed; Reason: Worsening of condition. Follow up: Private Physician; When: 2 - 3 days; Reason: Recheck today's complaints, Continuance of care, Re-evaluation by your physician. Problem is new. Symptoms have improved. pm1
[2019-04-21] MEDS ORDERED: dexAMETHasone 10 MG/ML VIAL ONE (06:55)
[2019-04-21 07:07] VITALS: BP 118/87; TEMP 97.8; O2SAT 97
== END 2019-04-21 07:03 | disposition home or self-care (01) ==
LOC: ER 06:25
DX: R21 Rash and other nonspecific skin eruption (principal); M54.5 Low back pain; Z72.0 Tobacco use; Z88.8 Allergy status to other drugs, medicaments and biological substances
CPT/HCPCS: 96372; 99283; J1100

== ENCOUNTER 2019-08-01 11:31 | Emergency (ER) | payer SELFPAY ==
[2019-08-01] MEDS ORDERED: dexAMETHasone 10 MG/ML VIAL ONE (12:28)
--- NOTE | 2019-08-01 12:29 | ER ---
Nurse's Notes [facility] Name: Emery Hernandez Age: 48 yrs Sex: Male : 1970 Arrival Date: 08/01/2019 Time: 11:32 Bed 11 Private MD: Diagnosis: Dermatitis, unspecified-Eczema Presentation: 08/01 11:45 Acuity: WANDER 4 sg 11:45 Presenting complaint: Patient states: My eczema is starting to flare up, Im out of my sg Tremethicone cream, reports having the rash to the right arm, and in the inner thighs, reports is more irritating than usual. Transition of care: patient was not received from another setting of care. Onset of symptoms was August 01, 2019. Risk Assessment: Do you want to hurt yourself or someone else? Patient reports no desire to harm self or others. Initial Sepsis Screen: Does the patient meet any 2 criteria? No. Patient's initial sepsis screen is negative. Does the patient have a suspected source of infection? No. Patient's initial sepsis screen is negative. Care prior to arrival: None. 11:45 Method Of Arrival: Ambulatory sg Historical: - Allergies: 11:45 Hydrocortisone; sg - PMHx: 11:45 Back pain; eczema; sg - PSHx: 11:45 None; sg - Immunization history:: Adult Immunizations not up to date. - Social history:: Smoking status: Patient uses tobacco products. - Ebola Screening: : Patient negative for fever greater than or equal to 101.5 degrees Fahrenheit, and additional compatible Ebola Virus Disease symptoms Patient denies exposure to infectious person Patient denies travel to an Ebola-affected area in the 21 days before illness onset No symptoms or risks identified at this time. - Family history:: not pertinent. Screenin:19 Abuse screen: Denies threats or abuse. Denies injuries from another. Nutritional iw screening: No deficits noted. Tuberculosis screening: No symptoms or risk factors identified. 12:20 Fall Risk None identified. iw Assessment: 12:18 General: Appears in no apparent distress. Behavior is calm, cooperative. Pain: Denies iw pain. Neuro: Level of Consciousness is awake, alert, obeys commands, Oriented to person, place, time, situation, Moves all extremities. Full function. Cardiovascular: Patient's skin is warm and dry. Respiratory: Respiratory effort is even, unlabored, Respiratory pattern is regular. Derm: Rash noted that is on right arm, left arm, right leg and left leg. Musculoskeletal: Range of motion: intact in all extremities. Vital Signs: 11:48 BP 132 / 88; Pulse 65; Resp 16; Temp 98.8; Pulse Ox 99% on R/A; Weight 69.4 kg; Height sg 5 ft. 11 in. (180.34 cm); Pain 6/10; 11:48 Body Mass Index 21.34 (69.40 kg, 180.34 cm) ED Course: 11:32 Patient arrived in ED. am2 11:45 Triage completed. sg 11:45 Arm band placed on. sg 11:45 Patient has correct armband on for positive identification. iw 12:06 Tiffani Leung, RN is Primary Nurse. iw 12:11 Michael Vogt MD is Attending Physician. [facility] 12:46 No provider procedures requiring assistance completed. Patient did not have IV access iw during this emergency room visit. Administered Medications: 12:35 Drug: Decadron 10 mg Route: IM; Site: right deltoid; iw 12:45 Follow up: Response: No adverse reaction iw Outcome: 12:28 Discharge ordered by . dolly 12:46 Discharged to home ambulatory. iw 12:46 Condition: good 12:46 Discharge instructions given to patient, Instructed on discharge instructions, follow up and referral plans. medication usage, Demonstrated understanding of instructions, follow-up care, medications, Prescriptions given X 2. 12:47 Patient left the ED. iw Signatures: Blue Rehman, JAIRO GILL Michael Vogt MD MD cha Williams, Irene, RN RN Tamia Tolbert [facility]
--- NOTE | 2019-08-01 12:29 | EDPHYS ---
Physician Documentation [facility] Name: Emery Hernandez Age: 48 yrs Sex: Male : 1970 Arrival Date: 08/01/2019 Time: 11:32 Bed 11 Private MD: ED Physician Michael Vogt HPI: 08/01 12:22 This 48 yrs old Black Male presents to ER via Ambulatory with complaints of Skin dolly Problem. 12:22 The patient's rash thought to be caused by Eczema Dermatitis. The rash is located on dolly the body diffusely. The rash can be described as diffuse, patchy, raised. Onset: The symptoms/episode began/occurred 3 day(s) ago. Associated signs and symptoms: Pertinent positives: None. Pertinent negatives: None. Severity of symptoms: At their worst the symptoms were mild in the emergency department the symptoms are worse. Historical: - Allergies: 11:45 Hydrocortisone; sg - PMHx: 11:45 Back pain; eczema; sg - PSHx: 11:45 None; sg - Immunization history:: Adult Immunizations not up to date. - Social history:: Smoking status: Patient uses tobacco products. - Ebola Screening: : Patient negative for fever greater than or equal to 101.5 degrees Fahrenheit, and additional compatible Ebola Virus Disease symptoms Patient denies exposure to infectious person Patient denies travel to an Ebola-affected area in the 21 days before illness onset No symptoms or risks identified at this time. - Family history:: not pertinent. ROS: 12:22 Constitutional: Negative for fever, chills, and weight loss, Eyes: Negative for injury, dolly pain, redness, and discharge, ENT: Negative for injury, pain, and discharge, Neck: Negative for injury, pain, and swelling, Cardiovascular: Negative for chest pain, palpitations, and edema, Respiratory: Negative for shortness of breath, cough, wheezing, and pleuritic chest pain, Abdomen/GI: Negative for abdominal pain, nausea, vomiting, diarrhea, and constipation, Back: Negative for injury and pain, : Negative for injury, bleeding, discharge, and swelling, MS/Extremity: Negative for injury and deformity, Neuro: Negative for headache, weakness, numbness, tingling, and seizure, Psych: Negative for depression, anxiety, suicide ideation, homicidal ideation, and hallucinations, Allergy/Immunology: Negative for hives, rash, and allergies, Endocrine: Negative for neck swelling, polydipsia, polyuria, polyphagia, and marked weight changes, Hematologic/Lymphatic: Negative for swollen nodes, abnormal bleeding, and unusual bruising. 12:22 Skin: Positive for rash, of the back, chest, right arm, right leg and left leg. Exam: 12:22 Constitutional: This is a well developed, well nourished patient who is awake, alert, dolly and in no acute distress. Head/Face: Normocephalic, atraumatic. Eyes: Pupils equal round and reactive to light, extra-ocular motions intact. Lids and lashes normal. Conjunctiva and sclera are non-icteric and not injected. Cornea within normal limits. Periorbital areas with no swelling, redness, or edema. ENT: Nares patent. No nasal discharge, no septal abnormalities noted. Tympanic membranes are normal and external auditory canals are clear. Oropharynx with no redness, swelling, or masses, exudates, or evidence of obstruction, uvula midline. Mucous membranes moist. Neck: Trachea midline, no thyromegaly or masses palpated, and no cervical lymphadenopathy. Supple, full range of motion without nuchal rigidity, or vertebral point tenderness. No Meningismus. Chest/axilla: Normal chest wall appearance and motion. Nontender with no deformity. No lesions are appreciated. Cardiovascular: Regular rate and rhythm with a normal S1 and S2. No gallops, murmurs, or rubs. Normal PMI, no JVD. No pulse deficits. Respiratory: Lungs have equal breath sounds bilaterally, clear to auscultation and percussion. No rales, rhonchi or wheezes noted. No increased work of breathing, no retractions or nasal flaring. Abdomen/GI: Soft, non-tender, with normal bowel sounds. No distension or tympany. No guarding or rebound. No evidence of tenderness throughout. Back: No spinal tenderness. No costovertebral tenderness. Full range of motion. Male : Normal genitalia with no discharge or lesions. MS/ Extremity: Pulses equal, no cyanosis. Neurovascular intact. Full, normal range of motion. Neuro: Awake and alert, GCS 15, oriented to person, place, time, and situation. Cranial nerves II-XII grossly intact. Motor strength 5/5 in all extremities. Sensory grossly intact. Cerebellar exam normal. Normal gait. Psych: Awake, alert, with orientation to person, place and time. Behavior, mood, and affect are within normal limits. 12:22 Skin: Appearance: Color: normal in color, Temperature: normal temperature, Moisture: normal moisture, petechiae, not noted, ecchymosis, not noted, that are mild. Vital Signs: 11:48 BP 132 / 88; Pulse 65; Resp 16; Temp 98.8; Pulse Ox 99% on R/A; Weight 69.4 kg; Height sg 5 ft. 11 in. (180.34 cm); Pain 6/10; 11:48 Body Mass Index 21.34 (69.40 kg, 180.34 cm) sg MDM: 12:11 Patient medically screened. [facility] 12:26 Data reviewed: vital signs, nurses notes. [facility] Administered Medications: 12:35 Drug: Decadron 10 mg Route: IM; Site: right deltoid; iw 12:45 Follow up: Response: No adverse reaction iw Disposition: 08/01/19 12:28 Discharged to Home. Impression: Dermatitis, unspecified - Eczema. - Condition is Stable. - Discharge Instructions: Contact Dermatitis, Eczema, Rash, Rash, [id number], Contact Dermatitis, [id number]. - Prescriptions for Medrol (Nelson) 4 mg Oral Tablets, Dose Pack - take 1 tablet by ORAL route as directed - follow package instructions; 1 packet. Triamcinolone Acetonide 0.5 % Topical Cream - apply 1 application by TOPICAL route 2 times per day As needed; 60 gram. - Medication Reconciliation Form, Thank You Letter, Antibiotic Education, Prescription Opioid Use form. - Follow up: Private Physician; When: 2 - 3 days; Reason: Recheck today's complaints, Continuance of care, Re-evaluation by your physician. - Problem is new. - Symptoms have improved. Signatures: Blue Rehman RN RN Michael Garcia MD MD cha Williams, Irene RN RN Corrections: (The following items were deleted from the chart) 12:47 12:28 08/01/2019 12:28 Discharged to Home. Impression: Dermatitis, unspecified - iw Eczema. Condition is Stable. Forms are Medication Reconciliation Form, Thank You Letter, Antibiotic Education, Prescription Opioid Use. Follow up: Private Physician; When: 2 - 3 days; Reason: Recheck today's complaints, Continuance of care, Re-evaluation by your physician. Problem is new. Symptoms have improved. dolly
[2019-08-01 12:52] VITALS: BP 132/88; TEMP 98.8; O2SAT 99
== END 2019-08-01 12:47 | disposition home or self-care (01) ==
LOC: ER 11:31
DX: L30.9 Dermatitis, unspecified (principal); Z72.0 Tobacco use; Z88.5 Allergy status to narcotic agent
CPT/HCPCS: 96372; 99283; J1100

== ENCOUNTER 2019-10-30 16:24 | Emergency (ER) | payer SELFPAY ==
[2019-10-30 17:38] VITALS: BP 108/78; TEMP 97.6; O2SAT 100
== END 2019-10-30 17:34 | disposition home or self-care (01) ==
LOC: ER 16:24
DX: L30.9 Dermatitis, unspecified (principal); Z88.8 Allergy status to other drugs, medicaments and biological substances
CPT/HCPCS: 99282; J2930

== ENCOUNTER 2019-11-12 18:51 | Emergency (ER) | payer SELFPAY ==
[2019-11-12] MEDS ORDERED: MAGNE/ALUM HYDROXD 30 ML UCUP ONE (20:17)
[2019-11-12] MEDS ORDERED: ONDANSETRON 4 MG/2 ML VIAL ONE (20:17)
[2019-11-12] MEDS ORDERED: MORPHINE 4 MG/ML SYR ONE (20:17)
[2019-11-12 20:18] LABS: Absolute Lymphocytes (CBC) 1.9 K/uL (0.7-4.9); Basophils % 1.9 % (0-1.3); Hematocrit 41.4 % (39.6-49.0); Lymphocytes % 29.9 % (15.3-44.8); MPV 7.3 fL (7.6-11.3); RBC Red Blood Cell Count 4.57 M/uL (4.33-5.43)
[2019-11-12] MEDS ORDERED: LIDOCAINE VISCOUS 2% SOLN 15 ML UDC ONE (20:18)
[2019-11-12] MEDS ORDERED: FAMOTIDINE 20 MG/2 ML VIAL IV ONE (20:18)
[2019-11-12] MEDS ORDERED: NA CHLORIDE 0.9% 1,000 ML ONE (20:18)
[2019-11-12 20:33] LABS: ALT/SGPT 37 U/L (12-78); AST/SGOT 32 U/L (15-37); Albumin 3.5 g/dL (3.4-5.0); Alkaline Phosphatase 147 U/L (45-117); BUN Blood Urea Nitrogen 17 mg/dL (7-18); Bicarbonate 27 mmol/L (21-32); Bilirubin Direct < 0.1 mg/dL (0-0.2); Glucose Level 95 mg/dL (74-106); Lipase 130 U/L (73-393); Potassium 3.9 mmol/L (3.5-5.1); Protein, Total 7.6 g/dL (6.4-8.2); Sodium Level 140 mmol/L (136-145)
[2019-11-12 20:42] LABS: Bilirubin Total 0.2 mg/dL (0.2-1.0)
[2019-11-12 20:49] LABS: Urine Blood NEGATIVE (NEG); Urine Glucose NEGATIVE (NEG); Urine Protein NEGATIVE (NEG); Urine Specific Gravity 1.025 (1.005-1.030); Urine pH 7.5 (5.0-7.0)
--- NOTE | 2019-11-12 21:39 | RAD REPORT ---
EXAM DESCRIPTION: CTAbdomen Pelvis W Contrast - 11/12/2019 9:22 pm CLINICAL HISTORY: Abdominal pain. ABD PAIN COMPARISON: No comparisons TECHNIQUE: Biphasic CT imaging of the abdomen and pelvis was performed with 100 ml non-ionic IV cont rast. All CT scans are performed using dose optimization technique as appropriate and may include automated exposure control or mA/KV adjustment according to patient size. FINDINGS: The lung bases are clear. The liver, spleen, pancreas, adrenal glands and kidneys are within normal limits. No bowel obstruction, free air, free fluid or abscess. The appendix is normal. No evidence of signi ficant lymphadenopathy. No suspicious bony findings. IMPRESSION: No acute intra-abdominal or pelvic finding.
--- NOTE | 2019-11-12 22:13 | EDPHYS ---
Physician Documentation [facility] Name: Emery Hernandez Age: 48 yrs Sex: Male : 1970 Arrival Date: 11/12/2019 Time: 18:53 Bed 27 Private MD: ED Physician Luis Peterson HPI: 11/11 19:35 This 48 yrs old Black Male presents to ER via Ambulatory with complaints of Skin ma2 Problem, Abdominal Pain. 19:35 The patient presents with abdominal pain. Onset: The symptoms/episode began/occurred ma2 gradually, 1 day(s) ago. Historical: - Allergies: 18:59 Hydrocortisone; jd3 - Home Meds: 18:59 None [Active]; jd3 - PMHx: 18:59 eczema; Back pain; jd3 - PSHx: 18:59 None; jd3 - Immunization history:: Adult Immunizations up to date. - Social history:: Smoking status: Patient reports the use of cigarette tobacco products, smokes one-half pack cigarettes per day. ROS: 19:35 Constitutional: Negative for fever, chills, and weight loss. ma2 19:35 All other systems are negative. Exam: 19:35 Constitutional: This is a well developed, well nourished patient who is awake, alert, ma2 and in no acute distress. Head/Face: Normocephalic, atraumatic. Eyes: Pupils equal round and reactive to light, extra-ocular motions intact. Lids and lashes normal. Conjunctiva and sclera are non-icteric and not injected. Cornea within normal limits. Periorbital areas with no swelling, redness, or edema. ENT: Nares patent. No nasal discharge, no septal abnormalities noted. Tympanic membranes are normal and external auditory canals are clear. Oropharynx with no redness, swelling, or masses, exudates, or evidence of obstruction, uvula midline. Mucous membranes moist. Neck: Trachea midline, no thyromegaly or masses palpated, and no cervical lymphadenopathy. Supple, full range of motion without nuchal rigidity, or vertebral point tenderness. No Meningismus. Chest/axilla: Normal chest wall appearance and motion. Nontender with no deformity. No lesions are appreciated. Cardiovascular: Regular rate and rhythm with a normal S1 and S2. No gallops, murmurs, or rubs. Normal PMI, no JVD. No pulse deficits. Respiratory: Lungs have equal breath sounds bilaterally, clear to auscultation and percussion. No rales, rhonchi or wheezes noted. No increased work of breathing, no retractions or nasal flaring. Abdomen/GI: Soft, non-tender, with normal bowel sounds. No distension or tympany. No guarding or rebound. No evidence of tenderness throughout. Neuro: Awake and alert, GCS 15, oriented to person, place, time, and situation. Cranial nerves II-XII grossly intact. Motor strength 5/5 in all extremities. Sensory grossly intact. Cerebellar exam normal. Normal gait. Vital Signs: 18:59 BP 131 / 87; Pulse 93; Resp 17 S; Temp 98.2(O); Pulse Ox 99% on R/A; Weight 69.85 kg jd3 (R); Height 5 ft. 10 in. (177.80 cm) (R); Pain 7/10; 20:00 BP 112 / 90; Pulse 73; Resp 16; Pulse Ox 100% on R/A; jb4 21:30 BP 133 / 96; Pulse 75; Resp 16; Pulse Ox 100% on R/A; jb4 22:15 BP 109 / 73; Pulse 70; Resp 16; Pulse Ox 100% on R/A; Pain 0/10; jb4 18:59 Body Mass Index 22.10 (69.85 kg, 177.80 cm) jd3 MDM: 19:00 Patient medically screened. ma2 19:35 Differential diagnosis: diverticulitis, gastritis, gastroesophageal reflux disease, ma2 pancreatitis. Data reviewed: vital signs, nurses notes. 22:11 Counseling: I had a detailed discussion with the patient and/or guardian regarding: the [facility] historical points, exam findings, and any diagnostic results supporting the discharge/admit diagnosis. 22:12 Response to treatment: the patient's symptoms have markedly improved after treatment. in2 11/11 19:21 Order name: Basic Metabolic Panel; Complete Time: 20:52 in2 11/11 19:21 Order name: CBC with Diff; Complete Time: 20:52 in2 11/11 19:21 Order name: Creatinine for Radiology; Complete Time: 20:52 [facility] 11/11 19:21 Order name: Hepatic Function; Complete Time: 20:52 in2 11/11 19:21 Order name: Lipase; Complete Time: 20:52 in2 11/11 20:44 Order name: Urine Dipstick--Ancillary (enter results); Complete Time: 20:52 ct 11/11 19:22 Order name: IV Saline Lock; Complete Time: 20:32 ma2 11/11 19:22 Order name: Labs collected and sent; Complete Time: 20:32 in2 11/11 20:30 Order name: CT Abd/Pelvis - IV Contrast Only; Complete Time: 22:12 in2 11/11 19:22 Order name: Urine Dipstick-Ancillary (obtain specimen); Complete Time: 20:43 ma2 Administered Medications: 20:25 Drug: NS 0.9% 1000 ml Route: IV; Rate: 1 bolus; Site: right antecubital; lp1 21:30 Follow up: Response: No adverse reaction; IV Status: Completed infusion; IV Intake: jb4 1000ml 20:25 Drug: Pepcid 20 mg Route: IVP; Site: right antecubital; lp1 21:00 Follow up: Response: No adverse reaction jb4 20:25 Drug: GI Cocktail without - (Maalox Suspension 30 ml, Lidocaine Liquid 2 % 15 lp1 ml) Route: PO; 21:00 Follow up: Response: No adverse reaction; Pain is decreased jb4 20:46 Not Given (Patient Refused): morphine 4 mg IVP once; RASS on ADMIN: Combtv4, Very jb4 Agttd3, Agttd2, Rstlss1, AlertClm0, Drwsy-1, Lt Sdtn-2, Mod Sdtn-3, Dp Sdtn-4, UnArsble-5 20:46 Not Given (Patient Refused): Zofran (Ondansetron) 4 mg IVP once; over 2 minutes jb4 Disposition: 11/12/19 22:13 Discharged to Home. Impression: Abdominal and pelvic pain. - Condition is Stable. - Discharge Instructions: Abdominal Pain, Adult. - Prescriptions for Fluticasone 0.05 % Topical Cream - apply 1 application by TOPICAL route once daily; 1 tube. Pepcid 20 mg Oral Tablet - take 1 tablet by ORAL route once daily for 10 days; 10 tablet. - Medication Reconciliation Form, Thank You Letter, Antibiotic Education, Prescription Opioid Use form. - Follow up: Private Physician; When: Tomorrow; Reason: If symptoms return. Signatures: Dispatcher [employer] EDMS Zonia Salazar RN RN lp1 Jcarlos Wood RN RN jb4 Chuckie Garduno RN RN jd3 Luis Peterson MD MD ma2 Corrections: (The following items were deleted from the chart) 22:33 22:13 11/12/2019 22:13 Discharged to Home. Impression: Abdominal and pelvic pain. jb4 Condition is Stable. Prescriptions for Fluticasone 0.05 % Topical Cream - apply 1 application by TOPICAL route once daily; 1 tube, Pepcid 20 mg Oral Tablet - take 1 tablet by ORAL route once daily for 10 days; 10 tablet. and Forms are Medication Reconciliation Form, Thank You Letter, Antibiotic Education, Prescription Opioid Use. Follow up: Private Physician; When: Tomorrow; Reason: If symptoms return. ma2
--- NOTE | 2019-11-12 22:13 | ER ---
Nurse's Notes [facility] Name: Emery Hernandez Age: 48 yrs Sex: Male : 1970 Arrival Date: 11/12/2019 Time: 18:53 Bed 27 Private MD: Diagnosis: Abdominal and pelvic pain Presentation: 11/11 18:57 Chief complaint: Patient states: "My stomach has been hurting for about 5 days. its jd3 just pain, no nausea or vomiting.". Coronavirus screen: Proceed with normal triage. Ebola Screen: Patient negative for fever greater than or equal to 101.5 degrees Fahrenheit, and additional compatible Ebola Virus Disease symptoms. Initial Sepsis Screen: Does the patient meet any 2 criteria? No. Patient's initial sepsis screen is negative. Does the patient have a suspected source of infection? No. Patient's initial sepsis screen is negative. Risk Assessment: Do you want to hurt yourself or someone else? Patient reports no desire to harm self or others. Onset of symptoms was November 07, 2019. 18:57 Method Of Arrival: Ambulatory jd3 18:57 Acuity: WANDER 3 jd3 Historical: - Allergies: 18:59 Hydrocortisone; jd3 - Home Meds: 18:59 None [Active]; jd3 - PMHx: 18:59 eczema; Back pain; jd3 - PSHx: 18:59 None; jd3 - Immunization history:: Adult Immunizations up to date. - Social history:: Smoking status: Patient reports the use of cigarette tobacco products, smokes one-half pack cigarettes per day. Screenin/20 19:00 Abuse screen: Denies threats or abuse. Nutritional screening: No deficits noted. jb4 Tuberculosis screening: No symptoms or risk factors identified. Fall Risk None identified. Assessment: 11/11 19:00 General: Appears in no apparent distress. uncomfortable, Behavior is calm, cooperative, jb4 appropriate for age. Pain: Complains of pain in epigastric area Pain does not radiate. Pain currently is 6 out of 10 on a pain scale. Quality of pain is described as burning, crampy. Neuro: Level of Consciousness is awake, alert, obeys commands, Oriented to person, place, time, situation. Cardiovascular: Patient's skin is warm and dry. Respiratory: Airway is patent Respiratory effort is even, unlabored, Respiratory pattern is regular, symmetrical. GI: Abdomen is flat, non-distended, Bowel sounds present X 4 quads. Abd is soft X 4 quads Abd is non tender in epigastric area, umbilical area, right upper quadrant, left upper quadrant and left lower quadrant Abdomen is tender to palpation in suprapubic area and right lower quadrant. : No signs and/or symptoms were reported regarding the genitourinary system. EENT: No signs and/or symptoms were reported regarding the EENT system. Derm: Skin is intact, Skin is dry, Skin is normal, Skin temperature is warm. Musculoskeletal: Circulation, motion, and sensation intact. Range of motion: intact in all extremities. 20:00 Reassessment: Patient appears in no apparent distress at this time. Patient and/or jb4 family updated on plan of care and expected duration. Pain level reassessed. Patient is alert, oriented x 3, equal unlabored respirations, skin warm/dry/pink. 20:25 Reassessment: Patient denies pain at this time; Aware to notify if abdominal pain lp1 returns. 21:00 Reassessment: Patient appears in no apparent distress at this time. Patient and/or jb4 family updated on plan of care and expected duration. Pain level reassessed. Patient is alert, oriented x 3, equal unlabored respirations, skin warm/dry/pink. Patient denies pain at this time. 22:00 Reassessment: Patient appears in no apparent distress at this time. Patient and/or jb4 family updated on plan of care and expected duration. Pain level reassessed. Patient is alert, oriented x 3, equal unlabored respirations, skin warm/dry/pink. Patient denies pain at this time. Patient states feeling better. 22:28 Reassessment: Patient is alert, oriented x 3, equal unlabored respirations, skin jb4 warm/dry/pink. Pt continues to deny having any pain. Verbalized understanding of d/c and follow up instructions. denies questions or concerns. Ambulated out of ED with steady gait. Vital Signs: 18:59 BP 131 / 87; Pulse 93; Resp 17 S; Temp 98.2(O); Pulse Ox 99% on R/A; Weight 69.85 kg jd3 (R); Height 5 ft. 10 in. (177.80 cm) (R); Pain 7/10; 20:00 BP 112 / 90; Pulse 73; Resp 16; Pulse Ox 100% on R/A; jb4 21:30 BP 133 / 96; Pulse 75; Resp 16; Pulse Ox 100% on R/A; jb4 22:15 BP 109 / 73; Pulse 70; Resp 16; Pulse Ox 100% on R/A; Pain 0/10; jb4 18:59 Body Mass Index 22.10 (69.85 kg, 177.80 cm) jd3 ED Course: 11/10 19:00 Patient has correct armband on for positive identification. Placed in gown. Bed in low jb4 position. Call light in reach. Side rails up X 1. Pulse ox on. NIBP on. 19:00 No provider procedures requiring assistance completed. IV discontinued, intact, jb4 bleeding controlled, No redness/swelling at site. 11/11 18:53 Patient arrived in ED. ag5 18:58 Triage completed. jd3 19:00 Luis Peterson MD is Attending Physician. ma2 19:00 Arm band placed on. jd3 19:01 Jcarlos Wood, JAIRO is Primary Nurse. jb4 20:05 Initial lab(s) drawn, by ne, sent to lab. Inserted saline lock: 20 gauge in right jb4 antecubital area, using aseptic technique. Blood collected. 21:22 CT Abd/Pelvis - IV Contrast Only In Process Unspecified. EDMS Administered Medications: 20:25 Drug: NS 0.9% 1000 ml Route: IV; Rate: 1 bolus; Site: right antecubital; lp1 21:30 Follow up: Response: No adverse reaction; IV Status: Completed infusion; IV Intake: jb4 1000ml 20:25 Drug: Pepcid 20 mg Route: IVP; Site: right antecubital; lp1 21:00 Follow up: Response: No adverse reaction jb4 20:25 Drug: GI Cocktail without - (Maalox Suspension 30 ml, Lidocaine Liquid 2 % 15 lp1 ml) Route: PO; 21:00 Follow up: Response: No adverse reaction; Pain is decreased jb4 20:46 Not Given (Patient Refused): morphine 4 mg IVP once; RASS on ADMIN: Combtv4, Very jb4 Agttd3, Agttd2, Rstlss1, AlertClm0, Drwsy-1, Lt Sdtn-2, Mod Sdtn-3, Dp Sdtn-4, UnArsble-5 20:46 Not Given (Patient Refused): Zofran (Ondansetron) 4 mg IVP once; over 2 minutes jb4 Intake: 21:30 IV: 1000ml; Total: 1000ml. jb4 Outcome: 22:13 Discharge ordered by MD. gamble 22:33 Patient left the ED. jb4 Signatures: Dispatcher [employer] EDMS Zonia Salazar RN RN lp1 Jcarlos Wood RN RN jb4 Chuckie Garduno RN RN Luis Boo MD MD ma2 Mukund Mott ag5
[2019-11-12 22:41] VITALS: TEMP 98.2
[2019-11-12 22:42] VITALS: O2SAT 100
[2019-11-12 22:45] VITALS: BP 109/73
== END 2019-11-12 22:33 | disposition home or self-care (01) ==
LOC: ER 18:51
DX: R10.2 Pelvic and perineal pain (principal); F17.210 Nicotine dependence, cigarettes, uncomplicated; Z88.8 Allergy status to other drugs, medicaments and biological substances
CPT/HCPCS: 36415; 74177; 80048; 80076; 81003; 83690; 85025; J2405; J7030; Q9967

== ENCOUNTER 2020-05-14 14:09 | Emergency (ER) | payer SELFPAY ==
--- NOTE | 2020-05-14 15:13 | ER ---
Nurse's Notes [facility] Name: Emery Hernandez Age: 49 yrs Sex: Male : 1970 Arrival Date: 05/14/2020 Time: 14:11 Bed 25 Private MD: Diagnosis: Dermatitis, unspecified-eczema Presentation: 05/14 14:21 Chief complaint: Rash on trunk, arms, and groin x 2 weeks. Hx of eczema. Coronavirus hb screen: At this time, the client does not indicate any symptoms associated with coronavirus-19. Ebola Screen: No symptoms or risks identified at this time. Initial Sepsis Screen: Does the patient meet any 2 criteria? No. Patient's initial sepsis screen is negative. Does the patient have a suspected source of infection? No. Patient's initial sepsis screen is negative. Risk Assessment: Do you want to hurt yourself or someone else? Patient reports no desire to harm self or others. Onset of symptoms was April 26, 2020. 14:21 Method Of Arrival: Ambulatory hb 14:21 Acuity: WANDER 4 hb Historical: - Allergies: 14:23 Hydrocortisone; hb - PMHx: 14:23 Back pain; eczema; hb - PSHx: 14:23 None; hb - Immunization history:: Adult Immunizations up to date. - Social history:: Smoking status: Patient reports the use of cigarette tobacco products, smokes one-half pack cigarettes per day. Screenin:04 Abuse screen: Denies threats or abuse. Denies injuries from another. Nutritional hb screening: No deficits noted. Tuberculosis screening: No symptoms or risk factors identified. Fall Risk. Vital Signs: 14:21 BP 120 / 80; Pulse 74; Resp 16; Temp 97.7; Pulse Ox 100% on R/A; Weight 70.31 kg; hb Height 5 ft. 10 in. (177.80 cm); Pain 1/10; 14:21 Body Mass Index 22.24 (70.31 kg, 177.80 cm) hb ED Course: 14:11 Patient arrived in ED. ag5 14:23 Triage completed. hb 14:23 Arm band placed on. hb 14:53 Jacki Guevar[facility] FNP-C [facility]. kb 14:53 Otto Stroud MD is Attending Physician. kb 15:04 Jeannine Friedman, RN is Primary Nurse. hb 15:04 Patient has correct armband on for positive identification. Bed in low position. Call hb light in reach. Administered Medications: No medications were administered Outcome: 15:13 Discharge ordered by . kb 15:32 Patient left the ED. hb Signatures: Jacki Guevara, DRAWER FITTER-C DRAWER FITTER-Jeannine Baum, RN RN Mukund Mott ag5
--- NOTE | 2020-05-14 15:13 | EDPHYS ---
Physician Documentation [facility] Name: Emery Hernandez Age: 49 yrs Sex: Male : 1970 Arrival Date: 05/14/2020 Time: 14:11 Bed 25 Private MD: ED Physician Otto Stroud HPI: 05/14 15:22 This 49 yrs old Black Male presents to ER via Ambulatory with complaints of Skin kb Problem. 15:22 The patient's rash thought to be caused by Eczema. The rash is located on the body kb diffusely. Onset: The symptoms/episode began/occurred last week. Associated signs and symptoms: Pertinent positives: itching, Pertinent negatives: burning sensation, difficulty breathing, fever, nausea, Pain swelling of lips, swelling of throat, swelling of tongue, vomiting, wheezing. Severity of symptoms: At their worst the symptoms were moderate in the emergency department the symptoms are unchanged. The patient has experienced similar episodes in the past, chronically. The patient has not recently seen a physician. Pt states he is out of the triamcinolone ointment that he normally uses so his eczema has flared up. . Historical: - Allergies: 14:23 Hydrocortisone; hb - PMHx: 14:23 Back pain; eczema; hb - PSHx: 14:23 None; hb - Immunization history:: Adult Immunizations up to date. - Social history:: Smoking status: Patient reports the use of cigarette tobacco products, smokes one-half pack cigarettes per day. ROS: 15:23 Constitutional: Negative for fever, chills, and weight loss, Cardiovascular: Negative kb for chest pain, palpitations, and edema, Respiratory: Negative for shortness of breath, cough, wheezing, and pleuritic chest pain, Abdomen/GI: Negative for abdominal pain, nausea, vomiting, diarrhea, and constipation, MS/Extremity: Negative for injury and deformity, Neuro: Negative for headache, weakness, numbness, tingling, and seizure. 15:23 Skin: Positive for rash. Exam: 15:23 Constitutional: This is a well developed, well nourished patient who is awake, alert, kb and in no acute distress. Head/Face: Normocephalic, atraumatic. Chest/axilla: Normal chest wall appearance and motion. Nontender with no deformity. No lesions are appreciated. Cardiovascular: Regular rate and rhythm with a normal S1 and S2. No gallops, murmurs, or rubs. Normal PMI, no JVD. No pulse deficits. Respiratory: Lungs have equal breath sounds bilaterally, clear to auscultation and percussion. No rales, rhonchi or wheezes noted. No increased work of breathing, no retractions or nasal flaring. Abdomen/GI: Soft, non-tender, with normal bowel sounds. No distension or tympany. No guarding or rebound. No evidence of tenderness throughout. MS/ Extremity: Pulses equal, no cyanosis. Neurovascular intact. Full, normal range of motion. Neuro: Awake and alert, GCS 15, oriented to person, place, time, and situation. Cranial nerves II-XII grossly intact. Motor strength 5/5 in all extremities. Sensory grossly intact. Cerebellar exam normal. Normal gait. 15:23 Skin: rash a moderate rash is noted, consistent with eczema, and is diffusely located. Vital Signs: 14:21 BP 120 / 80; Pulse 74; Resp 16; Temp 97.7; Pulse Ox 100% on R/A; Weight 70.31 kg; hb Height 5 ft. 10 in. (177.80 cm); Pain 1/10; 14:21 Body Mass Index 22.24 (70.31 kg, 177.80 cm) hb MDM: 14:53 Patient medically screened. kb 15:21 Data reviewed: vital signs, nurses notes. Data interpreted: Pulse oximetry: on room air kb is 100 %. Interpretation: normal. 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 Administered Medications: No medications were administered Disposition: 05/15 14:40 Co-signature as Attending Physician, Otto Stroud MD I agree with the assessment and kdr plan of care. Disposition: 05/14/20 15:13 Discharged to Home. Impression: Dermatitis, unspecified - eczema. - Condition is Stable. - Discharge Instructions: Eczema. - Prescriptions for Triamcinolone Acetonide 0.1 % Topical Ointment - apply 1 application by TOPICAL route every 12 hours As needed; 3 tube. - Medication Reconciliation Form, Thank You Letter, Antibiotic Education, Prescription Opioid Use form. - Follow up: Emergency Department; When: As needed; Reason: Worsening of condition. Follow up: Private Physician; When: 2 - 3 days; Reason: Recheck today's complaints, Continuance of care, Re-evaluation by your physician. Signatures: Jacki Guevara, SCREEN CLEANER-C SCREEN CLEANER-Ckb Otto Stroud MD MD [facility] Jeannine Friedman RN RN hb Corrections: (The following items were deleted from the chart) 05/14 15:32 15:13 05/14/2020 15:13 Discharged to Home. Impression: Dermatitis, unspecified - hb eczema. Condition is Stable. Forms are Medication Reconciliation Form, Thank You Letter, Antibiotic Education, Prescription Opioid Use. Follow up: Emergency Department; When: As needed; Reason: Worsening of condition. Follow up: Private Physician; When: 2 - 3 days; Reason: Recheck today's complaints, Continuance of care, Re-evaluation by your physician. kb
== END 2020-05-14 15:32 | disposition home or self-care (01) ==
LOC: ER 14:09
DX: L25.9 Unspecified contact dermatitis, unspecified cause (principal); F17.210 Nicotine dependence, cigarettes, uncomplicated; Z88.8 Allergy status to other drugs, medicaments and biological substances
CPT/HCPCS: 99281

== ENCOUNTER 2021-01-18 14:05 | Emergency (ER) | payer SELFPAY ==
--- NOTE | 2021-01-18 16:15 | ER ---
Nurse's Notes [facility] Name: Emery Hernandez Age: 50 yrs Sex: Male : 1970 Arrival Date: 01/18/2021 Time: 14:09 Bed 23 Private MD: Diagnosis: Eczema;Other bursitis of elbow, left elbow Presentation: 01/18 14:29 Chief complaint: Patient states: "I think I may been bit by spider on my left elbow jd3 because it is swollen and painful. My eczema is also acting up on my chest and it it itching.". Coronavirus screen: At this time, the client does not indicate any symptoms associated with coronavirus-19. Ebola Screen: Patient negative for fever greater than or equal to 101.5 degrees Fahrenheit, and additional compatible Ebola Virus Disease symptoms. Initial Sepsis Screen: Does the patient meet any 2 criteria? No. Patient's initial sepsis screen is negative. Does the patient have a suspected source of infection? No. Patient's initial sepsis screen is negative. Risk Assessment: Do you want to hurt yourself or someone else? Patient reports no desire to harm self or others. Onset of symptoms was January 17, 2021. 14:29 Method Of Arrival: Ambulatory jd3 14:29 Acuity: WANDER 3 jd3 Historical: - Allergies: 14:31 Hydrocortisone; jd3 - Home Meds: 14:31 None [Active]; jd3 - PMHx: 14:31 Back pain; eczema; jd3 - PSHx: 14:31 None; jd3 - Immunization history:: Adult Immunizations up to date. - Social history:: Smoking status: Patient reports the use of cigarette tobacco products, denies chronic smoking, but will smoke occasionally. Screenin:28 Abuse screen: Denies threats or abuse. Denies injuries from another. Nutritional ss screening: No deficits noted. Tuberculosis screening: Never had TB. Fall Risk None identified. Assessment: 16:31 General: Appears in no apparent distress. comfortable, Behavior is calm, cooperative. ss Pain: Complains of pain in left elbow Pain currently is 5 out of 10 on a pain scale. Neuro: Level of Consciousness is awake, alert, obeys commands, Oriented to person, place, time, situation. Cardiovascular: Capillary refill < 3 seconds is brisk in bilateral fingers. Respiratory: Airway is patent Respiratory effort is even, unlabored, Respiratory pattern is regular, symmetrical. EENT: Derm: Skin is intact, is healthy with good turgor, Skin is dry, Skin is pink, warm \\T\\ dry. normal. Derm: Reports itching. Musculoskeletal: Circulation, motion, and sensation intact. Range of motion: intact in all extremities, Swelling absent. Vital Signs: 14:32 BP 115 / 81; Pulse 68; Resp 17 S; Temp 98.2(TE); Pulse Ox 100% on R/A; Weight 70.31 kg jd3 (R); Height 5 ft. 11 in. (180.34 cm) (R); Pain 5/10; 14:32 Body Mass Index 21.62 (70.31 kg, 180.34 cm) j ED Course: 14:09 Patient arrived in ED. mr 14:31 Triage completed. jd3 14:32 Arm band placed on. jd3 15:56 India Penny RN is Primary Nurse. vg1 15:58 Jacki Guevara FNP-C is [facility]. kb 15:58 David Aponte MD is Attending Physician. kb 16:28 Patient has correct armband on for positive identification. Bed in low position. Call ss light in reach. 16:28 No provider procedures requiring assistance completed. IV discontinued, intact, ss bleeding controlled, No redness/swelling at site. Pressure dressing applied. Administered Medications: No medications were administered Outcome: 16:14 Discharge ordered by MD. kb 16:28 Discharged to home ambulatory. ss 16:28 Condition: good 16:28 Discharge instructions given to patient, Instructed on discharge instructions, follow up and referral plans. medication usage, Demonstrated understanding of instructions, follow-up care, medications, Prescriptions given X 2. 16:29 Patient left the ED. ss Signatures: Jacki Guevara FNP-C FNP-Orquidea Yessi Reed mr Katie Jones RN RN ss Davies, Jonathon, RN RN jd3 Garcia, Victoria, RN RN vg1 Corrections: (The following items were deleted from the chart) 14:32 14:29 Chief complaint: Patient states: "I think I may been bit by spider on my left jd3 elbow because it is swollen and painful. My allergies is also acting up on my chest and it it itching." j
--- NOTE | 2021-01-18 16:15 | EDPHYS ---
Physician Documentation [facility] Name: Emery Hernandez Age: 50 yrs Sex: Male : 1970 Arrival Date: 01/18/2021 Time: 14:09 Bed 23 Private MD: ED Physician David Aponte HPI: 01/18 17:00 This 50 yrs old Black Male presents to ER via Ambulatory with complaints of Elbow kb swelling. 17:00 the patient presents with a swollen area of the left elbow. Description: swollen. kb Onset: The symptoms/episode began/occurred yesterday. Possible cause(s): may have been bit by spider. Associated signs and symptoms: Pertinent positives: swelling, Pertinent negatives: discharge, drainage, erythema, foreign body sensation, fever, headache, nausea, shortness of breath, vomiting. Modifying factors: the symptoms are alleviated by nothing, the symptoms are aggravated by nothing. Severity of symptoms: At their worst the symptoms were moderate, in the emergency department the symptoms are unchanged. The patient has not experienced similar symptoms in the past. The patient has not recently seen a physician. Historical: - Allergies: 14:31 Hydrocortisone; jd3 - Home Meds: 14:31 None [Active]; jd3 - PMHx: 14:31 Back pain; eczema; jd3 - PSHx: 14:31 None; jd3 - Immunization history:: Adult Immunizations up to date. - Social history:: Smoking status: Patient reports the use of cigarette tobacco products, denies chronic smoking, but will smoke occasionally. ROS: 16:55 Constitutional: Negative for fever, chills, and weight loss. kb 16:55 Skin: Positive for abscess, swelling, of the left elbow. 16:57 All other systems are negative. kb Exam: 16:57 Constitutional: This is a well developed, well nourished patient who is awake, alert, kb and in no acute distress. Head/Face: Normocephalic, atraumatic. ENT: Moist Mucous membranes Respiratory: Respirations even and unlabored. No increased work of breathing, no retractions or nasal flaring. MS/ Extremity: Pulses equal, no cyanosis. Neurovascular intact. Full, normal range of motion. Neuro: Awake and alert, GCS 15, oriented to person, place, time, and situation. Moves all extremities. Normal gait. Psych: Awake, alert, with orientation to person, place and time. Behavior, mood, and affect are within normal limits. 16:57 Skin: Appearance: normal except for affected area, Color: normal in color, swelling, noted on the left elbow, that are moderate, abscess, that is small, of the left elbow, with fluctuance, consistent with eczema, on the chest. Vital Signs: 14:32 BP 115 / 81; Pulse 68; Resp 17 S; Temp 98.2(TE); Pulse Ox 100% on R/A; Weight 70.31 kg jd3 (R); Height 5 ft. 11 in. (180.34 cm) (R); Pain 5/10; 14:32 Body Mass Index 21.62 (70.31 kg, 180.34 cm) jd3 Procedures: 16:58 18G needle used to drain small abscess. Very small amount of purulent drainage removed. kb . MDM: 15:58 Patient medically screened. kb 16:54 Data reviewed: vital signs, nurses notes. Data interpreted: Pulse oximetry: on room air kb is 100 %. Interpretation: normal. Counseling: I had a detailed discussion with the patient and/or guardian regarding: the historical points, exam findings, and any diagnostic results supporting the discharge/admit diagnosis, the need for outpatient follow up, a family practitioner, to return to the emergency department if symptoms worsen or persist or if there are any questions or concerns that arise at home. 16:59 ED course: bursitis to left elbow with a small (1cm in diameter) abscess that looks kb like a blister on the very tip of elbow. . Administered Medications: No medications were administered Disposition: 17:25 Co-signature as Attending Physician, David Aponte MD. rn Disposition: 01/18/21 16:14 Discharged to Home. Impression: Eczema, Other bursitis of elbow, left elbow. - Condition is Stable. - Discharge Instructions: Eczema, Bursitis, [id number]. - Prescriptions for Triamcinolone Acetonide 0.5 % Topical Cream - apply 1 application by TOPICAL route 2 times per day As needed; 1 tube. Bactrim DS 800- 160 mg Oral Tablet - take 1 tablet by ORAL route every 12 hours for 7 days; 14 tablet. - Medication Reconciliation Form, Thank You Letter, Antibiotic Education, Prescription Opioid Use, Work release form form. - Follow up: Emergency Department; When: As needed; Reason: Worsening of condition. Follow up: Private Physician; When: 2 - 3 days; Reason: Recheck today's complaints, Continuance of care, Re-evaluation by your physician. Signatures: Jacki Guevara, OWEN-C SUPERVISOR MOLDING-David Teran MD MD rn Robert, JAIRO Wilson RN ss Chuckie Garduno RN RN jd3 Corrections: (The following items were deleted from the chart) 16:29 16:14 01/18/2021 16:14 Discharged to Home. Impression: Eczema; Other bursitis of elbow, ss left elbow. Condition is Stable. Forms are Medication Reconciliation Form, Thank You Letter, Antibiotic Education, Prescription Opioid Use. Follow up: Emergency Department; When: As needed; Reason: Worsening of condition. Follow up: Private Physician; When: 2 - 3 days; Reason: Recheck today's complaints, Continuance of care, Re-evaluation by your physician. kb
[2021-01-18 16:35] VITALS: BP 115/81; TEMP 98.2; O2SAT 100
== END 2021-01-18 16:29 | disposition home or self-care (01) ==
LOC: ER 14:05
PROC: 0J9H0ZZ Drainage of Left Lower Arm Subcutaneous Tissue and Fascia, Open Approach (ICD-10-PCS; principal; 2021-01-18)
DX: L02.414 Cutaneous abscess of left upper limb (principal); M71.522 Other bursitis, not elsewhere classified, left elbow; L30.9 Dermatitis, unspecified; F17.210 Nicotine dependence, cigarettes, uncomplicated
CPT/HCPCS: 99282

== ENCOUNTER 2021-03-03 13:27 | Emergency (ER) | payer SELFPAY ==
--- NOTE | 2021-03-03 16:24 | RAD REPORT ---
EXAM DESCRIPTION: RAD - Elbow Left 3 View - 03/03/2021 4:19 pm CLINICAL HISTORY: Left elbow pain status post trauma FINDINGS: No fracture or dislocation is seen.
[2021-03-03 18:19] LABS: SARS-COV-2 RT PCR POSITIVE (NEGATIVE)
--- NOTE | 2021-03-03 19:04 | ER ---
Nurse's Notes [facility] Name: Emery Hernandez Age: 50 yrs Sex: Male : 1970 Arrival Date: 03/03/2021 Time: 13:29 Bed DIS1 Private MD: Diagnosis: SARS-associated coronavirus as the cause of diseases classified elsewhere Presentation: 03/03 14:46 Chief complaint: Patient states: Sore throat, fatigue, body aches, left elbow pain jl7 since yesterday, bumped the elbow a few days ago. Coronavirus screen: Client denies travel out of the [place] in the last 14 days. fatigue, sore throat, Client presents with at least one sign or symptom that may indicate coronavirus-19. Standard/surgical mask placed on the client. Provider contacted for isolation considerations. Ebola Screen: No symptoms or risks identified at this time. Initial Sepsis Screen: Does the patient meet any 2 criteria? No. Patient's initial sepsis screen is negative. Does the patient have a suspected source of infection? No. Patient's initial sepsis screen is negative. Risk Assessment: Do you want to hurt yourself or someone else? Patient reports no desire to harm self or others. Onset of symptoms was March 02, 2021. 14:46 Method Of Arrival: Ambulatory [facility] 14:46 Acuity: WANDER 4 jl7 Triage Assessment: 19:10 Headache History: Denies prior headaches. General: Appears in no apparent distress. ld1 uncomfortable. Pain: Also complains of no other associated symptoms. Pain: Denies pain. Historical: - Allergies: 14:48 Hydrocortisone; jl7 - PMHx: 14:48 Back pain; eczema; jl7 - Immunization history:: Adult Immunizations up to date, Client reports having NOT received the Covid vaccine. - Social history:: Smoking status: Patient reports the use of cigarette tobacco products, smokes one-half pack cigarettes per day. Screenin:41 Abuse screen: Denies threats or abuse. Denies injuries from another. Nutritional ld1 screening: No deficits noted. Tuberculosis screening: No symptoms or risk factors identified. Fall Risk None identified. Assessment: 15:41 General: Appears in no apparent distress. comfortable, Behavior is calm, cooperative, ld1 appropriate for age. Pain: Complains of pain in left elbow Pain does not radiate. Pain currently is 9 out of 10 on a pain scale. Quality of pain is described as throbbing, Pain began 1 day ago. Is continuous. Neuro: Level of Consciousness is awake, alert, obeys commands, Oriented to person, place, time, situation. Cardiovascular: Capillary refill < 3 seconds Patient's skin is warm and dry. Respiratory: Airway is patent Respiratory effort is even, unlabored, Respiratory pattern is regular, symmetrical. GI: Abdomen is flat, non-distended. : No signs and/or symptoms were reported regarding the genitourinary system. EENT: Throat is reddened Reports Sore throat. Derm: No signs and/or symptoms reported regarding the dermatologic system. Musculoskeletal: No signs and/or symptoms reported regarding the musculoskeletal system. Vital Signs: 14:46 BP 120 / 92; Pulse 86; Resp 15; Temp 98.2; Pulse Ox 99% ; Weight 67.13 kg; Height 5 ft. jl7 10 in. (177.80 cm); Pain 7/10; 15:41 BP 124 / 90; Pulse 82; Resp 18; Pulse Ox 100% on R/A; ld1 14:46 Body Mass Index 21.24 (67.13 kg, 177.80 cm) jl7 ED Course: 13:29 Patient arrived in ED. ds1 14:48 Triage completed. jl7 14:48 Arm band placed on right wrist. jl7 15:38 Belia Johns, JAIRO is Primary Nurse. ld1 15:41 Jacki Guevara FNP-C is PHCP. kb 15:41 Otto Stroud MD is Attending Physician. kb 15:41 Patient has correct armband on for positive identification. Call light in reach. Pulse ld1 ox on. NIBP on. 15:41 No provider procedures requiring assistance completed. ld1 16:19 Elbow Left 3 View XRAY In Process Unspecified. EDMS 19:04 PHCP role handed off by Jacki Guevara FNP-C jr8 19:04 Kye Lazaro PA is PHCP. jr8 19:10 Patient did not have IV access during this emergency room visit. ld1 Administered Medications: No medications were administered Outcome: 19:04 Discharge ordered by . jr8 19:10 Discharged to home ambulatory. ld1 19:10 Condition: stable 19:10 Discharge instructions given to patient, Instructed on discharge instructions, follow up and referral plans. medication usage, Demonstrated understanding of instructions, follow-up care, medications. 19:10 Patient left the ED. ld1 Signatures: Dispatcher [employer] EDMS Jacki Guevara, TOOL ROOM GEAR MACHINE OPERATOR-C TOOL ROOM GEAR MACHINE OPERATOR-Ckb De LeonEm ds1 Kye Lazaro PA PA jr8 Leal, Jahala, RN RN jl7 Belia Johns RN RN ld1 Corrections: (The following items were deleted from the chart) 14:50 14:46 Chief complaint: Patient states: Sore throat, fatigue, body aches, left elbow jl7 pain since yesterday jl7
--- NOTE | 2021-03-03 19:05 | EDPHYS ---
Physician Documentation [facility] Name: Emery Hernandez Age: 50 yrs Sex: Male : 1970 Arrival Date: 03/03/2021 Time: 13:29 Bed DIS1 Private MD: ED Physician Otto Stroud HPI: 03/03 17:22 This 50 yrs old Black Male presents to ER via Ambulatory with complaints of Fatigue, kb Elbow Pain, Headache. 17:23 The patient or guardian reports flu symptoms, low-grade fever, myalgias, no appetite. kb Onset: The symptoms/episode began/occurred yesterday. The patient has not experienced similar symptoms in the past. The patient has not recently seen a physician. 17:26 Severity of symptoms: At their worst the symptoms were mild, moderate, in the emergency kb department the symptoms are unchanged. Modifying factors: The symptoms are alleviated by nothing, the symptoms are aggravated by nothing. Associated signs and symptoms: Pertinent positives: sore throat, Pertinent negatives: chest pain, diarrhea, ear ache, fever, nausea, rhinorrhea, vomiting. Historical: - Allergies: 14:48 Hydrocortisone; jl7 - PMHx: 14:48 Back pain; eczema; jl7 - Immunization history:: Adult Immunizations up to date, Client reports having NOT received the Covid vaccine. - Social history:: Smoking status: Patient reports the use of cigarette tobacco products, smokes one-half pack cigarettes per day. ROS: 17:21 Cardiovascular: Negative for chest pain, palpitations, and edema. kb 17:22 Constitutional: Positive for body aches, chills, fatigue, fever, malaise. kb 17:22 ENT: Positive for sore throat. 17:22 MS/extremity: Positive for pain, of the left elbow. 17:22 Neuro: Positive for headache. 17:22 All other systems are negative. Exam: 17:22 Constitutional: This is a well developed, well nourished patient who is awake, alert, kb and in no acute distress. Head/Face: Normocephalic, atraumatic. ENT: Moist Mucous membranes Respiratory: Respirations even and unlabored. No increased work of breathing, no retractions or nasal flaring. Skin: Warm, dry with normal turgor. Normal color. MS/ Extremity: Pulses equal, no cyanosis. Neurovascular intact. Full, normal range of motion. Neuro: Awake and alert, GCS 15, oriented to person, place, time, and situation. Moves all extremities. Normal gait. Psych: Awake, alert, with orientation to person, place and time. Behavior, mood, and affect are within normal limits. Vital Signs: 14:46 BP 120 / 92; Pulse 86; Resp 15; Temp 98.2; Pulse Ox 99% ; Weight 67.13 kg; Height 5 ft. jl7 10 in. (177.80 cm); Pain 7/10; 15:41 BP 124 / 90; Pulse 82; Resp 18; Pulse Ox 100% on R/A; ld1 14:46 Body Mass Index 21.24 (67.13 kg, 177.80 cm) jl7 MDM: 15:41 Patient medically screened. kb 17:22 Data reviewed: vital signs, nurses notes. Data reviewed:. Data interpreted: Pulse kb oximetry: on room air is 100 %. Interpretation: normal. Counseling: I had a detailed discussion with the patient and/or guardian regarding: the historical points, exam findings, and any diagnostic results supporting the discharge/admit diagnosis, lab results, radiology results, the need for outpatient follow up, a family practitioner, to return to the emergency department if symptoms worsen or persist or if there are any questions or concerns that arise at home. 03/03 15:46 Order name: Strep; Complete Time: 06:21 kb 03/03 15:46 Order name: Elbow Left 3 View XRAY; Complete Time: 16:25 kb 03/03 18:19 Order name: COVID-19/FLU A+B; Complete Time: 19:05 EDMS Administered Medications: No medications were administered Disposition: 03/04 07:19 Co-signature as Attending Physician, Otto Stroud MD I agree with the assessment and kdr plan of care. Disposition Summary: 03/03/21 19:04 Discharge Ordered Location: Home jr8 Problem: new jr8 Symptoms: have improved jr8 Condition: Stable jr8 Diagnosis - SARS-associated coronavirus as the cause of diseases classified elsewhere jr8 Followup: jr8 - With: Private Physician - When: 2 - 3 days - Reason: Recheck today's complaints, Continuance of care, Re-evaluation by your physician Discharge Instructions: - Discharge Summary Sheet jr8 - COVID-19 jr8 Forms: - Medication Reconciliation Form jr8 - Thank You Letter jr8 - Antibiotic Education jr8 - Prescription Opioid Use jr8 Signatures: Dispatcher [employer] EDMS Jacki Guevara, UMBRELLA MENDER-Alejandro WEAVER-Otto Oscar MD MD kdr Roszak, Josh, PA PA jr8 Clair Titus, RN RN jl7 Corrections: (The following items were deleted from the chart) 03/03 17:27 17:23 Onset: The symptoms/episode began/occurred today, kb kb 17:37 15:46 CORONAVIRUS+MR.LAB.BRZ ordered. EDMS EDMS 17:38 15:46 Influenza Screen (A \T\ B)+BA.LAB.BRZ ordered. EDMS EDMS
[2021-03-03 19:39] VITALS: TEMP 98.2
[2021-03-03 19:40] VITALS: BP 124/90; O2SAT 100
== END 2021-03-03 19:10 | disposition home or self-care (01) ==
LOC: ER 13:27
DX: U07.1 COVID-19 (principal); Z88.8 Allergy status to other drugs, medicaments and biological substances
CPT/HCPCS: 0240U; 87070; 87081; 99283

== ENCOUNTER 2021-03-08 10:00 | Emergency (ER) | payer SELFPAY ==
--- NOTE | 2021-03-08 14:04 | ER ---
Nurse's Notes [facility] Name: Emery Hernandez Age: 50 yrs Sex: Male : 1970 Arrival Date: 03/08/2021 Time: 10:02 Bed Waiting Private MD: Diagnosis: Presentation: 03/08 10:37 Chief complaint: Patient states: "They tested me for COVID and told me I was positive ss and I didn't have any problems, but now I night I feel like my breathing is a little shaky like it's harder to breath." + COVID on 03/02. Coronavirus screen: Client presents with at least one sign or symptom that may indicate coronavirus-19. Ebola Screen: Patient denies exposure to infectious person. Patient denies travel to an Ebola-affected area in the 21 days before illness onset. Initial Sepsis Screen: Does the patient meet any 2 criteria? No. Patient's initial sepsis screen is negative. Does the patient have a suspected source of infection? No. Patient's initial sepsis screen is negative. Risk Assessment: Do you want to hurt yourself or someone else? Patient reports no desire to harm self or others. Onset of symptoms was March 06, 2021. 10:37 Method Of Arrival: Ambulatory ss 10:37 Acuity: WANDER 5 ss Historical: - Allergies: 10:40 Hydrocortisone; ss - PMHx: 10:40 Back pain; eczema; ss - Immunization history:: Client reports having NOT received the Covid vaccine. - Social history:: Smoking status: Patient reports the use of cigarette tobacco products, denies chronic smoking, but will smoke occasionally. Assessment: 14:02 Reassessment: called back to triage for reassessment. No answer. [employer] had been ss calling patient from ER lobby and has been unsuccessfully locating patient. Vital Signs: 10:37 BP 117 / 92; Pulse 77; Resp 16; Temp 97.2; Pulse Ox 97% on R/A; Weight 67.13 kg; Height ss 5 ft. 10 in. (177.80 cm); Pain 0/10; 10:37 Body Mass Index 21.24 (67.13 kg, 177.80 cm) ss ED Course: 10:02 Patient arrived in ED. mr 10:40 Triage completed. ss 10:40 Arm band placed on right wrist. ss 13:25 Vj Queen NP is PHCP. pm1 13:25 Prisca Jackson is Attending Physician. pm1 Administered Medications: No medications were administered Outcome: 14:03 Eloped from waiting room. ss 14:04 Patient left the ED. Signatures: Yessi Reed mr JonesKatie, RN RN ss Vj Queen NP [employer] LEADER pm1
[2021-03-08 14:16] VITALS: BP 117/92; TEMP 97.2; O2SAT 97
== END 2021-03-08 14:04 | disposition left against medical advice (07) ==
LOC: ER 10:00
DX: Z02.9 Encounter for administrative examinations, unspecified (principal)
CPT/HCPCS: 99281